=== PATIENT | male | born 1945 | race Caucasian/White ===

== ENCOUNTER 2018-06-18 12:54 | Emergency (ER) | payer MEDICARE, OTHER, SELFPAY ==
[2018-06-18 13:00] VITALS: BP 152/88; PULSE 56; RESP 20; TEMP 36.2; O2SAT 99; BMI 27.2
--- NOTE | 2018-06-18 13:06 | DI.RAD.S_ITS ---
PROCEDURE: XR FINGER RT MIN 2V INDICATIONS: cut pointer finger with a table saw TECHNIQUE: AP hand, 2 views of the second finger(s) acquired. COMPARISON: None. FINDINGS: Bones: Acute oblique fracture involving tip of second distal phalanx is seen. No suspicious bony lesions. Soft tissues: No suspicious soft tissue calcifications. Soft tissue swelling around second distal phalangeal tuft is noted. No radiopaque foreign body. IMPRESSION: Acute second distal phalangeal tuft fracture with surrounding soft tissue swelling. No radiopaque foreign body. Dictated by: Tony Schilling M.D. on 06/18/2018 at 13:24 Approved by: Tony Schilling M.D. on 06/18/2018 at 13:26
[2018-06-18] MEDS: TET,DIPH,PERTUSS(ACELL),VAC/PF 0.5 ML SYRINGE IM (13:39)
--- NOTE | 2018-06-18 14:52 | ED_ITS ---
HPI - Wound/Laceration General Chief Complaint: Wound/Laceration Stated Complaint: Cut on finger Time Seen by Provider: 06/18/18 13:36 Source: patient Mode of arrival: ambulatory Limitations: no limitations History of Present Illness HPI narrative: Patient is a 72-year-old male with laceration to right index finger. He is finishing up a [place] gift for his using a table saw when the wood kicked back. His he has a laceration through the nail bed and the IP. He has no numbness he does have some mild tingling he is able to flex and extend completely at all joints. He states he does need a tetanus shot. Onset (ago): minute(s) Extremity Location: Right: hand (Right index finger) Place: home Patient tetanus UTD: No Context: accidental Related Data Previous Rx's Medication Instructions Recorded cephalexin [Keflex] 500 mg PO TID #21 cap 06/18/18 Allergies Allergy/AdvReac Type Severity Reaction Status Date / Time No Known Drug Allergies Allergy Verified 06/18/18 13:17 Review of Systems Review of Systems GENERAL: Denies chills,fever HEENT: Denies throat pain RESPIRATORY: Denies dyspnea, cough, wheezing CARDIOVASCULAR: Denies chest pain, palpitations GASTROINTESTINAL: Denies nausea, vomiting MUSCULOSKELETAL: Denies extremity pain, injury SKIN: No rash, no laceration, no pruritus NEUROLOGIC: Denies weakness, dizziness, headache, numbness 8 point review of systems is negative except for those stated above and HPI PFSH Medical History Healthy adult (Acute) Social History Smoking Status: Never smoker Exam Initial Vital Signs Initial Vital Signs: Vital Signs Temperature 97.1 F L 06/18/18 13:00 Pulse Rate 56 L 06/18/18 13:00 Respiratory Rate 20 06/18/18 13:00 Blood Pressure 152/88 H 06/18/18 13:00 Pulse Oximetry 99 06/18/18 13:00 GENERAL: Well-appearing, well-nourished and in no acute distress. CARDIOVASCULAR: peripheral pulses in tact, cap refill <2 sec RESPIRATORY: No respiratory distress, speaks in full sentences without difficulty EXTREMITIES: Normal range of motion, no clubbing or edema. Neurovascularly intact NEUROLOGICAL: Cranial nerves II through XII grossly intact. Normal gait and speech. SKIN: Warm, dry, no petechiae, no rashes or lesions. Skin Hand Right Back: 2 1. 3 cm Through nail bed no exposed bone. Able to flex and extend at the IP and PIP. Neurovascularly intact. Cap refill less than 2 sec. Procedures Laceration Repair Laceration 1: Site: hand (Right index finger) Side (If applicable): right Size (cm): 3 Description: linear Depth: involves muscle layer Local Anesthetic: lidocaine 1% and with epi Amount of anesthesia used (mL): 3.5 Pre-repair: wound explored, irrigated extensively and deep structures intact Skin layer closed with: nylon Size (cm): 4-0 Number of sutures: 2 Technique: simple, interrupted Subcutaneous layer closed with: vicryl (Nail bed) Size: 5-0 Number of sutures: 2 Technique: simple, interrupted Nerve Block Nerve Block 1: Time out performed: Yes Local Anesthetic: lidocaine 1% and with bicarb Amount of anesthesia used (mL): 3.5 Side: right (Index finger) Nerve Blocks: digital Procedure Successful: Yes Patient Tolerated Procedure: Well Complications: none Course Orders Ordered: ED Orders 06/18/18 13:06 XR finger RT min 2V Stat Discontinued Medications Cefazolin Sodium (Keflex) 1 bottle [facility] [place] [facility] Stop: 06/18/18 15:01 Last Admin: 06/18/18 15:05 Dose: 500 mg Diphtheria/Tetanus/Acell Pertussis (Adacel) 0.5 ml IM .ONCE ONE Stop: 06/18/18 13:10 Last Admin: 06/18/18 13:39 Dose: 0.5 ml Vital Signs - 8 hr 06/18/18 13:00 06/18/18 15:13 Temperature 97.1 F L Pulse Rate 56 L 59 L Respiratory Rate 20 17 Blood Pressure 152/88 H Blood Pressure [Left Arm] 174/82 H Pulse Oximetry 99 99 MDM - Wound/Laceration MDM Narrative Medical decision making narrative: There is a gap from the table saw however does have fairly good skin approximation. No tendon or nerve damage noted. Nail bed was repaired. I have called and spoken with Dr. Navas, who agrees with outpatient follow- up. Patient is given antibiotics. He is offered pain medications but he actually has some oxycodone left over from a previous surgery which he would prefer to take at home. Discharge Plan Departure Patient Disposition: Home Clinical Impression: Laceration of right index finger, Closed fracture of phalanx of right index finger Discharge Date/Time: 06/18/18 15:23 Interventions: ED Discharge Assessment Last Done: 06/18/18 15:23 Instructions: DI for Laceration Repair -- Complex Activity Restrictions/Additional Instructions: *You have been diagnosed with a complicated right index finger laceration involving nail bed and right finger fracture *What to do: Keep splint on finger, keep dressing on the finger may change in 24 hr Black sutures will need to be removed in 5-7 days likely with Orthopedics, sutures in nail beds should dissolve *Continue to take medications as directed Keflex 500 mg 3 times a day -Tylenol 650 mg every 4 hr if needed for mild pain do not exceed more than 4 g in 1 day *Follow up with your primary care provider in 2-3 days, call [facility] tomorrow to schedule follow-up appoint *Return to ER if you should have redness, pus, swelling, increased pain [or] any new, worsening or concerning symptoms Prescriptions: New cephalexin [Keflex] 500 mg capsule 500 mg PO TID Qty: 21 RF: 0 Referrals: [facility] [Provider Group]
[2018-06-18] MEDS: cephALEXin 250 MG PREPACK 1 BOTTLE MISC (15:05)
[2018-06-18 15:13] VITALS: BP 174/82; PULSE 59; RESP 17; O2SAT 99
== END 2018-06-18 15:23 | disposition home or self-care (01) ==
PROVIDERS: Emergency Provider Emergency Medicine
DX: S62.600B Fracture of unspecified phalanx of right index finger, initial encounter for open fracture (principal); W31.2XXA Contact with powered woodworking and forming machines, initial encounter
CPT/HCPCS: 12002; 29130; 73140; 90471; 99283; 90715

== ENCOUNTER → 2020-02-14 13:09 | Outpatient (CLI) | payer MEDICARE, OTHER, SELFPAY ==
[2020-02-15 19:23] LABS: COVID19 Sendout Not Detected (Not Detect)
== END ==
PROVIDERS: Visit Provider Nurse Practitioner
DX: Z11.59 Encounter for screening for other viral diseases (principal)
CPT/HCPCS: 87635

== ENCOUNTER 2020-02-17 11:38 | Day surgery (SDC) | payer MEDICARE, OTHER, SELFPAY ==
[2020-02-17 12:15] VITALS: BP 185/91; PULSE 52; RESP 16; TEMP 36.2; O2SAT 99; BMI 27.2
[2020-02-17] MEDS: SODIUM CHLORIDE 0.9% 1,000 ML 200 ML IV (12:31)
--- NOTE | 2020-02-17 13:13 | PM.HP.1 ---
History of Present Illness History of Present Illness Date Patient Seen: 02/17/20 Time Patient Seen: 13:13 Chief complaint: SD Narrative: This is a 74-year-old man with history of polyps found on prior colonoscopy. He denies any new symptoms since his last colonoscopy which was over 5 years ago. He denies any melena, hematochezia, unexplained abdominal pain, unexplained weight loss. ROS: Thirteen system review is otherwise negative other than as mentioned below and in HPI. PE: GENERAL: Well groomed and cooperative. Appears stated age. Answers questions promptly and appropriately. Vital signs noted. HENT: Normocephalic, atraumatic. Hearing intact. EYES: Conjunctiva pink, sclera white, no periorbital swelling. CARDIOVASCULAR: Regular rate. No pedal edema. RESPIRATORY: Non-tachypneic, breathing comfortably on room air. GASTROINTESTINAL: Abdomen soft and non-distended GENITALURINARY: No flank tenderness. MUSCULOSKELETAL: Equal tone and mass bilaterally. SKIN: Warm, dry, soft, appropriate color for ethnicity. No other lesions, rashes, or wounds. NEURO: Alert and Oriented X 3. No gross sensory deficits, or cognitive issues. PSYCH: Appropriate affect and mood. Patient History Medical History Healthy adult (Acute) Family & Social History Social History: household members spouse Tobacco & Substance use: Smoking Status Never smoker alcohol intake current alcohol intake frequency holiday/special occasion Substance Use Type does not use Meds Home Medications and Allergies Home Medications Medication Instructions Recorded Confirmed Type sodium,potassium,mag sulfates 17.5 177 ml PO DAILY #354 ml 02/11/20 Rx gram-3.13 gram-1.6 gram oral soln Allergies Allergy/AdvReac Type Severity Reaction Status Date / Time No Known Drug Allergies Allergy Verified 02/17/20 12:03 Exam Vital Signs (past 8 hours): - 02/17/20 12:15 Temperature 97.2 F L Pulse Rate 52 L Respiratory Rate 16 Blood Pressure 185/91 H Pulse Oximetry 99 Oxygen Delivery Method Room Air Assessment & Plan Assessment and plan (1) Personal history of colonic polyps: Status: Acute (2) Hypertension: Status: Acute Assessment & Plan narrative: Risks and benefits of screening colonoscopy and possible polypectomy were discussed with the patient including risk of bleeding, perforation, need for additional procedures, risks of anesthesia. The patient desires to proceed with the colonoscopy procedure. COVID-19 COVID-19 status: Negative Result date/Date tested (Pos, Neg/Pending): 02/14/20 Time Spent With Patient Time with patient: 15-24 minutes Quality VTE Deep Vein Thrombosis/Pulmonary Embolism Present on Admission: No
--- NOTE | 2020-02-17 13:17 | PM.OP.ENDO ---
Operative Date/Time/Diagnoses Date of procedure: 02/17/20 Time of procedure: 13:17 Pre-op diagnosis: Personal history colon polyps Post-op diagnosis: other (Diverticulosis, external hemorrhoids, bradycardia) Procedure & Clinicians Study performed: Colonoscopy Conscious sedation performed by the endoscopist Same procedure as scheduled: Yes Indications: Personal history of colon polyps Surgeon: Deborah Nuno Procedure Notes SCOAP/Timeout: Performed Procedure in detail: The patient was brought to the room and placed in left lateral decubitus position with all bony prominences padded. A time-out was performed and then the patient was given procedural sedation starting with [4] mg of Versed and [100] mcg of fentanyl. Vitals were monitored throughout the procedure. Once adequately sedated, the procedure was begun. A rectal exam was performed revealing large external hemorrhoid. The colonoscope was then introduced to the rectum and advanced to the cecum in the usual fashion. The patient became bradycardic down to the 30s, and had a couple of dips into the 20s at a few points during the procedure. We had him Valsalva and his heart rate came back up to the 40s each time. His blood pressure remained in the 140s systolic, and he was able to talk to us, denied chest pain, and was appropriately alert when awake and during the procedure. []The cecum was identified by the appendiceal orifice, the mucosal tri-fold, and the ileocecal valve. The scope was then retracted while rotating side to side and examining each mucosal fold. Moderate diverticulosis seen in the sigmoid colon. No polyps or masses were seen. The colon was quite tortuous with many twists and fold. [] At the conclusion of the procedure retroflexion was performed and [small grade 1-2 internal hemorrhoids without stigmata of bleeding were seen]. The scope was then withdrawn from the rectum the procedure was concluded. The patient tolerated the procedure well and was transferred to the PACU in stable condition. Scope withdrawal time: 8 Sedation minutes: 17 Findings: diverticulosis and other findings (Large external her) Specimen(s): none sent Complications: other (Bradycardia) Impression: Diverticulosis, large external hemorrhoid Post-procedure Recommendations: Colonscopy in 5 years (Due to personal history of colon polyps) and Other recommendation (Use Metamucil or fiber supplement, follow-up with primary care doctor to evaluate bradycardia) Follow up: as needed Disposition: PACU
[2020-02-17] MEDS: fentaNYL 250 MCG/5 ML INJ IV (13:21)
[2020-02-17] MEDS: MIDAZOLAM 5 MG/5 ML VIAL IV (13:21)
[2020-02-17 13:45] VITALS: BP 163/77; PULSE 53; RESP 13; TEMP 36.2; O2SAT 96
[2020-02-17 13:49] VITALS: BP 160/73; PULSE 53; RESP 12; TEMP 36.4; O2SAT 99
[2020-02-17 13:54] VITALS: BP 147/95; PULSE 51; RESP 13; O2SAT 98
[2020-02-17 14:02] VITALS: BP 155/83; PULSE 48; RESP 17; TEMP 37; O2SAT 97
--- NOTE | 2020-02-17 14:08 | SUR.PHASEII ---
Report and handoff to Amna
[2020-02-17 14:19] VITALS: BP 140/84; PULSE 45; RESP 16; TEMP 36.7; O2SAT 96
== END 2020-02-17 14:23 | disposition home or self-care (01) ==
PROVIDERS: PCP Internal Medicine; Referring Provider Internal Medicine; Visit Provider Surgery
PROC: 0DJD8ZZ Inspection of Lower Intestinal Tract, Via Natural or Artificial Opening Endoscopic (ICD-10-PCS; CPT 45378; principal; 2020-02-17 13:00)
DX: Z12.11 Encounter for screening for malignant neoplasm of colon (principal); Z86.010 Personal history of colon polyps; R00.1 Bradycardia, unspecified; I10 Essential (primary) hypertension; K57.30 Diverticulosis of large intestine without perforation or abscess without bleeding; K64.0 First degree hemorrhoids
CPT/HCPCS: G0105; 99152; J2250; J3010

== ENCOUNTER → 2020-12-02 09:13 | Outpatient (CLI) | payer MEDICARE, OTHER, SELFPAY ==
--- NOTE | 2020-12-02 09:16 | DI.RAD.S_ITS ---
PROCEDURE: XR SHOULDER LT MIN 2V INDICATIONS: l shoulder pain TECHNIQUE: 3 views of the shoulder were acquired. COMPARISON: [facility], [place], PET NECK TO MID THIGH STD, 07/07/2015, 13:45. FINDINGS: Bones: No fractures or dislocations. No suspicious bony lesions. Visualized ribs appear intact. Moderate degenerative change appreciated. Degenerative hypertrophy of the AC joint with inferior spurring. Soft tissues: No suspicious soft tissue calcifications. IMPRESSION: No acute osseous abnormality. 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 If clinically indicated consider MRI for further evaluation. Dictated by: Epifanio Montano M.D. on 12/02/2020 at 9:51 Approved by: Epifanio Montano M.D. on 12/02/2020 at 9:54
== END ==
PROVIDERS: PCP Internal Medicine; Referring Provider Physician Assistant; Visit Provider Physician Assistant
DX: M25.512 Pain in left shoulder (principal)
CPT/HCPCS: 73030

== ENCOUNTER 2020-12-06 12:17 | Emergency (ER) | payer MEDICARE, OTHER, SELFPAY ==
[2020-12-06 12:34] VITALS: BP 164/82; PULSE 62; RESP 19; O2SAT 98; BMI 27.2
[2020-12-06 16:21] VITALS: BP 169/82; PULSE 60; RESP 20; O2SAT 100
--- NOTE | 2020-12-06 16:26 | ED.SKABFB ---
HPI - Skin/Abscess/Foreign Bdy General Chief complaint: Skin/Abscess/Foreign Body Stated complaint: swelling/bruising left side no injury Time Seen by Provider: 12/06/20 16:25 Source: patient Mode of arrival: Family Vehicle Limitations: no limitations History of Present Illness HPI narrative: This is a 75-year-old comes emergency department with complaint of increasing ecchymosis down his arm as well as his left chest and flank. Patient states on the or 28 of November he was driving his car he was extending and adduct his arm when he felt a pop in his shoulder and had immediate pain. Since then he has had weakness and had difficulty flexing his left forearm. Patient noticed bruising down his arm and then the 2 or 3 days later noticed bruising and some swelling behind the scapula. Another day after that he noted bruising on his left flank which felt failure full. The fullness has resolved but he still has ecchymosis. Patient does not take any daily medications. He does not take any anticoagulants. He denies any other falls, trauma or injuries. He states he is quite uncomfortable in the evening but has tried Tylenol oral at home. He was seen in the walk-in clinic who told him he thought he had a ruptured biceps tendon and referred him to his primary care. He has not seen orthopedic surgery. He denies any allergies to medications. He denies any numbness, EKG Ali has some tingling in his fingers but not regularly. Related Data Previous Rx's Medication Instructions Recorded sodium,potassium,mag sulfates 17.5 177 ml PO DAILY #354 ml 02/11/20 gram-3.13 gram-1.6 gram oral soln Allergies Allergy/AdvReac Type Severity Reaction Status Date / Time No Known Drug Allergies Allergy Verified 12/06/20 12:34 Review of Systems Review of Systems ROS Unobtainable: All systems reviewed & are unremarkable except as noted in HPI and below Patient History Medical History (Updated 12/06/20 @ 19:10 by Ekta Bradley DO) Healthy adult Social History household members: spouse Smoking Status: Never smoker alcohol intake: current Smoking Status: Never smoker alcohol intake frequency: holidays/special occasions only Substance Use Type: does not use Exam Narrative Exam Narrative: GEN: Patient appears in mild distress. HEAD: No evidence of trauma, no raccoon/Carreon sign. NECK: Nontender, painless range of motion, trachea midline Negative Nexus criteria, there is no mid line tenderness, distracting injury, altered mental status, neuro deficit, recent EtOH. EYES: PERRLA, EOMI ENT: External inspection normal, trachea is midline,Nares are clear, no septal hematoma, airway is normal and with normal occlusion. RESP: Chest is nontender except for posterior chest over the left scapula which does have some fullness. He has symmetric movement, no ecchymosis, breath sounds are normal no crackles, wheezes or rales. CVS: Heart sounds are normal, no murmur noted, No JVD. ABG/GI: Nontender, soft, normal bowel sounds, no distention, no organomegaly. NEURO: Oriented AOx3, neuro is grossly intact, sensation and motor is normal all 4 extremities moving, cranial nerves II through XII are intact, GCS is 15 PSYCH: Normal mood and affect SKIN: Intact, warm and dry, no crepitus. Patient has ecchymosis of the left upper extremity into the axilla region he also has ecchymosis of the posterior back just below the scapula. It is also noted patient has ecchymoses of his left flank with no palpable hematoma. No warmth, erythema skin changes noted. BACK: No CVA tenderness, no vertebral tenderness, no step-off's, no crepitus EXT: Atraumatic, hips are nontender, no pedal edema, normal color and temperature, normal range of motion of extremities with normal tendon exam, 2+ pulses in all four extremities Initial Vital Signs Initial Vital Signs: Vital Signs Pulse Rate 62 12/06/20 12:34 Respiratory Rate 19 12/06/20 12:34 Blood Pressure 164/82 H 12/06/20 12:34 Pulse Oximetry 98 12/06/20 12:34 Scores GCS [place] coma scale eye opening: Spontaneous [place] coma scale verbal response: Orientated [place] coma scale motor response: Obey commands [place] coma scale total score: 15 Course Orders Ordered: ED Orders 12/06/20 16:36 CT chest abd pel w con Stat 12/06/20 16:41 XR shoulder LT min 2V Stat 12/06/20 16:52 Complete Blood Count AUTO DIFF Stat Comprehensive Metabolic Panel Stat Type and Screen Stat Consultations Consultation #1: Dr. Ayala, patient to follow up in office. Vital Signs Vital signs: Vital Signs - 8 hr 12/06/20 16:21 12/06/20 19:07 Pulse Rate 60 59 L Respiratory Rate 20 18 Blood Pressure 169/82 H 141/81 H Pulse Oximetry 100 99 MDM - Skin/Abscess/Foreign Bdy Lab Data Attestation: I reviewed the patient's lab results. Result diagrams: 12/06/20 16:52 12/06/20 16:52 Labs: Lab Results 12/06/20 12/06/20 12/06/20 Range/Units 16:52 16:52 16:52 WBC 5.8 (4.5-11.0) X10^3/uL RBC 4.10 L (4.5-5.9) X10^6/uL Hgb 12.6 L (13.5-17.5) g/dL Hct 36.5 L (41-53) % MCV 88.9 (80-100) fL MCH 30.8 (26-34) PG MCHC 34.7 (30-36) % RDW 14.2 (11.6-14.8) % Plt Count 256 (150-400) X10^3/uL Neut % (Auto) 62.5 (50-75) % Lymph % (Auto) 24.3 L (25-40) % Isabela % (Auto) 9.4 (3-14) % Eos % (Auto) 3.5 (2-4) % Baso % (Auto) 0.3 (0-2) % Neut # (Auto) 3600 (1819-4257) /uL Lymph # (Auto) 1400 (5017-1053) /uL Isabela # (Auto) 500 (0-900) /uL Eos # (Auto) 200 (0-450) /uL Baso # (Auto) 0 (0-100) /uL Sodium 138 (137-145) mmol/L Potassium 4.1 (3.4-5.1) mmol/L Chloride 106 (98-107) mmol/L Carbon Dioxide 25 (22-32) mmol/L BUN 18 (9-20) mg/dL Creatinine 0.99 (0.66-1.25) mg/dL Estimated GFR > 60.0 (>60) mL/min BUN/Creatinine Ratio 18.2 (6-22) Glucose 88 (80-110) mg/dL Calcium 9.4 (8.4-10.2) mg/dL Total Bilirubin 1.0 (0.2-1.3) mg/dL AST 40 (17-59) IU/L ALT 38 (<50) IU/L Alkaline Phosphatase 66 (38-126) U/L Total Protein 6.9 (6.3-8.2) g/dL Albumin 4.0 (3.5-5.0) g/dL Globulin 2.9 (1.7-4.1) g/dL Albumin/Globulin Ratio 1.4 (1.0-2.8) Blood Type A Positive Antibody Screen Negative Imaging Data CT scan - abdomen/pelvis: Radiologist's Impression: [address] [id number] Scan ReportSigned Patient: Samuel Ricardo BMR#: [id number]: 6Acct:[id number]/Sex: 75 / MDate of Service: 12/06/20Loc: EDAccession Number: [id number] Procedure: CT chest abd pel w con Ordering Provider: Ekta Bradley D.O. PROCEDURE: CT CHEST ABD PEL W CON INDICATIONS: Chest and abdomen pain. Abdominal and arm bruising TECHNIQUE: After the administration of intravenous contrast, 5 mm thick sections acquired from the lung apices to the symphysis. 5 mm coronal and sagittal reformats were performed, with additional 7 mm MIP reformats through the lungs. For radiation dose reduction, the following was used: automated exposure control, adjustment of mA and/or kV according to patient size. COMPARISON: None. FINDINGS: Image quality: Excellent. CHEST: Lungs and pleura: No acute airspace opacities. No pleural effusions or pneumothorax. Central and peripheral airways appear patent and normal in caliber. Mediastinum: Heart size is normal. No pericardial effusion. No mediastinal or hilar adenopathy by size criteria. Thoracic aorta and central pulmonary arteries are normal in size. Esophagus is normal in caliber. No hiatal hernia. Chest wall: No axillary or supraclavicular adenopathy by size criteria. Thyroid gland unremarkable. In the left infraspinous muscle, there is a heterogenous ovoid hypodensity measuring 2.7 x 6.6 by 4.3 cm which probably reflects a intramuscular hematoma, given history. The scapula and ribs are intact. Degenerative changes of both shoulders in noted. No rib fracture. ABDOMEN: Solid organs: Liver is normal in size and enhancement. Gallbladder shows incidental cholelithiasis without evidence of acute cholecystitis . Biliary system is non dilated. Pancreas enhances normally. Spleen is normal in size and enhancement. No adrenal nodules. Kidneys demonstrate normal size and enhancement, without hydronephrosis. Peritoneum and bowel: Bowel loops demonstrate normal wall thickness and caliber. No free fluid or air. Diverticulosis without evidence of diverticulitis Nodes and vessels: No retroperitoneal or mesenteric adenopathy by size criteria. Aorta and inferior vena cava are normal in size. Miscellaneous: No ventral hernias. PELVIS: Genitourinary: Bladder wall thickness is normal. Miscellaneous: No inguinal hernias or adenopathy. There is edema in the subcutaneous tissue overlying the left iliac crest, ill-defined. Bones: No suspicious bony lesions. No vertebral body compression fractures. Multilevel degenerative disc disease and arthropathy noted in lower lumbar spine. Partial sacralization of the L5 vertebral body. Vertebral body heights and alignment are preserved. No fracture. IMPRESSION: 1. Probable intramuscular hematoma noted in the left infraspinatus muscle belly measuring 6.6 x 2.7 cm. Correlate with trauma history. Consider follow-up to resolution. 2. Bruising in the subcutaneous tissue overlying the left iliac crest. 3. Degenerative osseous changes without fracture 4. Cholelithiasis without evidence of cholecystitis Dictated by: Everton Scott M.D. on 12/06/2020 at 16:57 Approved by: Everton Scott M.D. on 12/06/2020 at 17:10 Extremity x-ray #1: Radiologist's Impression: [address] [id number] ReportSigned Patient: Samuel Ricardo BMR#: [id number]: 1945cct:[id number]/Sex: 75 / MDate of Service: 12/06/20Loc: EDAccession Number: [id number] Procedure: XR shoulder LT min 2V Ordering Provider: Ekta Bradley D.O. PROCEDURE: XR SHOULDER LT MIN 2V INDICATIONS: left shoulder pain, ? ruptured biceps tendon TECHNIQUE: 3 views of the shoulder were acquired. COMPARISON: [facility], CR, XR SHOULDER LT MIN 2V, 12/02/2020, 9:20. FINDINGS: Bones: No fractures or dislocations. No suspicious bony lesions. Visualized ribs appear intact. There is now seen prominent narrowing of the acromial humeral distance, measuring less than 2 mm. This represents a change compared to the 12/02/2020 examination. Underlying degenerative changes are seen. Soft tissues: No suspicious soft tissue calcifications. The visualized lung demonstrates an unremarkable appearance. IMPRESSION: There is narrowing of the acromial humeral distance. An underlying full-thickness rotator cuff tear is presumed. If it would be helpful for clinical management decision making, please consider a dedicated, scheduled shoulder MRI for further evaluation (assuming that there is no contraindication). Dictated by: Jeremi Nayak M.D. on 12/06/2020 at 16:57 Approved by: Jeremi Nayak M.D. on 12/06/2020 at 16:58 [facility] Narrative Medical decision making narrative: This is a 75-year-old male who comes in with complaint of weakness of his left upper extremity with movement after feeling pop. Patient has pretty significant hematoma and ecchymosis into his left upper extremity as well as left torso and left hip. CT abdomen pelvis shows a 6.6 x 2.7cm hematoma in the left infraspinatous. Patient has bruising in the subcu over the left iliac crest which is too atypical but patient has been sleeping upright and is likely secondary to gravity. Cholelithiasis without evidence of cholecystitis. An x-ray imaging does show changes with narrowing of the acromial humerus distance and with a full-thickness rotator cuff tear presumed. Patient hemoglobin today is 12 but I do not have any priors to compare to see if this is a change. Patient has not been hypotensive or tachycardic here in the department. Plan for close follow-up with Orthopedic surgery and repeat hemoglobin in the next 24-48 hours with strict return precautions. Patient politely declines a sling and we did discuss he does need to decrease activity level. Discharge Plan Departure Patient Disposition: Home Clinical Impression: Traumatic hematoma of left thoracic region, Internal derangement of left shoulder, Traumatic ecchymosis of left hip, Anemia Activity Restrictions/Additional Instructions: Follow up with orthopedic surgery for treatment and evaluation. I do agree that you likely have a biceps tendon rupture/tear or possibly a rotator cuff repair. Call tomorrow for an appointment this week. Decrease your activity with that arm. No lifting greater than 10 pounds or strenous activity until seen by orthopedic surgery. You may take tylenol up to 1000mg every 8 hours daily. Your imaging today does show a hematoma that is 6.6x2.7cm in the left infraspinatous muscle, it is likely the blood is running down towards your hip due to gravity. No other injurys were found on CT of your chest/abd/pelvis today. Your hemoglobin is 12 this may be new or chronic. Asked to call your physician have recheck in the next 24-48 hours to make sure your hemoglobin is not continuing to drop. Incidentally it is noted that you do have gallstones on your imaging and some degenerative and arthritic changes in your lower lumbar spine. Return for rapidly worsening swelling of your back, increasing size of hematoma or bruising. Lightheadedness, new chest pain or shortness of breath, new or worsening abdominal pain, new numbness, tingling or weakness, or other new or concerning symptoms. Prescriptions: No Action sodium,potassium,mag sulfates 17.5-3.13-1.6 gram recon soln 177 ml PO DAILY Qty: 354 RF: 0 Referrals: Magaly Gamino MD [Primary Care Provider] - Tommie Ayala MD [Physician] -
--- NOTE | 2020-12-06 16:36 | DI.CT.S_ITS ---
PROCEDURE: CT CHEST ABD PEL W CON INDICATIONS: Chest and abdomen pain. Abdominal and arm bruising TECHNIQUE: After the administration of intravenous contrast, 5 mm thick sections acquired from the lung apices to the symphysis. 5 mm coronal and sagittal reformats were performed, with additional 7 mm MIP reformats through the lungs. For radiation dose reduction, the following was used: automated exposure control, adjustment of mA and/or kV according to patient size. COMPARISON: None. FINDINGS: Image quality: Excellent. CHEST: Lungs and pleura: No acute airspace opacities. No pleural effusions or pneumothorax. Central and peripheral airways appear patent and normal in caliber. Mediastinum: Heart size is normal. No pericardial effusion. No mediastinal or hilar adenopathy by size criteria. Thoracic aorta and central pulmonary arteries are normal in size. Esophagus is normal in caliber. No hiatal hernia. Chest wall: No axillary or supraclavicular adenopathy by size criteria. Thyroid gland unremarkable. In the left infraspinous muscle, there is a heterogenous ovoid hypodensity measuring 2.7 x 6.6 by 4.3 cm which probably reflects a intramuscular hematoma, given history. The scapula and ribs are intact. Degenerative changes of both shoulders in noted. No rib fracture. ABDOMEN: Solid organs: Liver is normal in size and enhancement. Gallbladder shows incidental cholelithiasis without evidence of acute cholecystitis . Biliary system is non dilated. Pancreas enhances normally. Spleen is normal in size and enhancement. No adrenal nodules. Kidneys demonstrate normal size and enhancement, without hydronephrosis. Peritoneum and bowel: Bowel loops demonstrate normal wall thickness and caliber. No free fluid or air. Diverticulosis without evidence of diverticulitis Nodes and vessels: No retroperitoneal or mesenteric adenopathy by size criteria. Aorta and inferior vena cava are normal in size. Miscellaneous: No ventral hernias. PELVIS: Genitourinary: Bladder wall thickness is normal. Miscellaneous: No inguinal hernias or adenopathy. There is edema in the subcutaneous tissue overlying the left iliac crest, ill-defined. Bones: No suspicious bony lesions. No vertebral body compression fractures. Multilevel degenerative disc disease and arthropathy noted in lower lumbar spine. Partial sacralization of the L5 vertebral body. Vertebral body heights and alignment are preserved. No fracture. IMPRESSION: 1. Probable intramuscular hematoma noted in the left infraspinatus muscle belly measuring 6.6 x 2.7 cm. Correlate with trauma history. Consider follow-up to resolution. 2. Bruising in the subcutaneous tissue overlying the left iliac crest. 3. Degenerative osseous changes without fracture 4. Cholelithiasis without evidence of cholecystitis Dictated by: Everton Scott M.D. on 12/06/2020 at 16:57 Approved by: Everton Scott M.D. on 12/06/2020 at 17:10
--- NOTE | 2020-12-06 16:41 | DI.RAD.S_ITS ---
PROCEDURE: XR SHOULDER LT MIN 2V INDICATIONS: left shoulder pain, ? ruptured biceps tendon TECHNIQUE: 3 views of the shoulder were acquired. COMPARISON: [facility], CR, XR SHOULDER LT MIN 2V, 12/02/2020, 9:20. FINDINGS: Bones: No fractures or dislocations. No suspicious bony lesions. Visualized ribs appear intact. There is now seen prominent narrowing of the acromial humeral distance, measuring less than 2 mm. This represents a change compared to the 12/02/2020 examination. Underlying degenerative changes are seen. Soft tissues: No suspicious soft tissue calcifications. The visualized lung demonstrates an unremarkable appearance. IMPRESSION: There is narrowing of the acromial humeral distance. An underlying full-thickness rotator cuff tear is presumed. If it would be helpful for clinical management decision making, please consider a dedicated, scheduled shoulder MRI for further evaluation (assuming that there is no contraindication). Dictated by: Jeremi Nayak M.D. on 12/06/2020 at 16:57 Approved by: Jeremi Nayak M.D. on 12/06/2020 at 16:58
[2020-12-06 17:15] LABS: Add Manual Diff / Slide Review NO; Basophils Absolute Auto 0 /uL (0-100); Basophils Percent Auto 0.3 % (0-2); Eosinophils Absolute Auto 200 /uL (0-450); Eosinophils Percent Auto 3.5 % (2-4); Hematocrit 36.5 % (41-53); Hemoglobin 12.6 g/dL (13.5-17.5); Lymphocytes Absolute Auto 1400 /uL (1100-4500); Lymphocytes Percent Auto 24.3 % (25-40); Mean Corpuscular HGB Conc 34.7 % (30-36); Mean Corpuscular Hemoglobin 30.8 PG (26-34); Mean Corpuscular Volume 88.9 fL (80-100); Monocytes Absolute Auto 500 /uL (0-900); Monocytes Percent Auto 9.4 % (3-14); Neutrophils Absolute Auto 3600 /uL (1500-7000); Neutrophils Percent Auto 62.5 % (50-75); Platelet Count 256 X10^3/uL (150-400); Red Cell Distribution Width 14.2 % (11.6-14.8); White Blood Cell Count 5.8 X10^3/uL (4.5-11.0)
[2020-12-06 17:16] LABS: Alanine Aminotransferase 38 IU/L (<50); Albumin Globulin Ratio 1.4 (1.0-2.8); Alkaline Phosphatase 66 U/L (38-126); Aspartate Aminotransferase 40 IU/L (17-59); BUN Creatinine Ratio 18.2 (6-22); Blood Urea Nitrogen 18 mg/dL (9-20); Calcium 9.4 mg/dL (8.4-10.2); Carbon Dioxide 25 mmol/L (22-32); Chloride 106 mmol/L (98-107); Estimated Glomerular Filt Rate > 60.0 mL/min (>60); Globulin 2.9 g/dL (1.7-4.1); Glucose 88 mg/dL (80-110); HEMOLYSIS < 15 (0-50); Potassium 4.1 mmol/L (3.4-5.1); Sodium 138 mmol/L (137-145); Total Protein 6.9 g/dL (6.3-8.2)
[2020-12-06 19:07] VITALS: BP 141/81; PULSE 59; RESP 18; O2SAT 99
--- NOTE | 2020-12-06 19:08 | PC.NURSE ---
c/o bruising down left arm, left axialla and down left flank. Denies trauma except recent left arm injury from lifting and presumed bicpet tear. + CSM distally.
== END 2020-12-06 19:25 | disposition home or self-care (01) ==
PROVIDERS: Emergency Provider Emergency Medicine; PCP Internal Medicine
DX: S20.222A Contusion of left back wall of thorax, initial encounter (principal); S70.02XA Contusion of left hip, initial encounter; D64.9 Anemia, unspecified; M24.812 Other specific joint derangements of left shoulder, not elsewhere classified; R07.9 Chest pain, unspecified; R10.9 Unspecified abdominal pain
CPT/HCPCS: 36415; 71260; 73030; 74177; 80053; 85025; 86850; 86900; 86901; 99284; Q9967

== ENCOUNTER → 2020-12-21 16:47 | Outpatient (CLI) | payer MEDICARE, OTHER, SELFPAY ==
--- NOTE | 2020-12-21 | DI.MRI.S_ITS ---
PROCEDURE: MR SHOULDER LT WO CON INDICATIONS: Unspecified rotator cuff tear TECHNIQUE: Noncontrast oblique coronal T2 fast spin echo with fat saturation, oblique sagittal T1 spin echo and T2 fast spin echo with fat saturation, axial T1 spin echo and T2 fast spin echo with fat saturation through the shoulder. COMPARISON: None. FINDINGS: Image quality: Excellent. Rotator cuff: Full-thickness rupture of distal supraspinatus and infraspinatus at their insertion on the humeral head is seen with up to 5.2 cm medial retraction of torn tendon fibers to the level of glenoid. Tendinosis and low-grade partial-thickness tear involving superior fibers of distal subscapularis is seen. Sagittal images demonstrate moderate supraspinatus muscle atrophy. Large lobulated intramuscular hematoma within visualized portion of infraspinatus muscle is seen. Bones and bursae: No bone marrow contusions or fractures. Moderate acromioclavicular joint and glenohumeral joint osteoarthritic changes are seen. Superior migration of humeral head in relation to glenoid is also noted. There is moderate amount of joint effusion and subacromial subdeltoid bursal fluid. No definite intra-articular loose body is seen. Moderate subcoracoid bursal fluid is also seen. Capsule and soft tissues: Labrum is grossly intact. Glenohumeral ligaments are intact. The long head of the biceps tendinosis is seen. The rotator interval appears normal, without fibrosis. The coracohumeral ligament is normal in thickness. IMPRESSION: 1. Full-thickness rupture of distal supraspinatus and infraspinatus at their insertion on humeral head with up to 5.2 cm medial retraction of torn tendon fibers to the level of glenoid. Moderate supraspinatus muscle atrophy. Large intramuscular hematoma within visualized portion of infraspinatus muscle. 2. Distal subscapularis tendinosis with partial-thickness tear involving superior fibers of distal subscapularis. 3. Moderate acromioclavicular joint and glenohumeral joint osteoarthritis. Moderate amount of joint effusion and bursal fluid as above. No gross intra-articular loose body. 4. No gross focal labral tear. Proximal intra-articular portion of long head of biceps tendinosis. Dictated by: Tony Schilling M.D. on 12/22/2020 at 8:57 Approved by: Tony Schilling M.D. on 12/22/2020 at 9:21
== END ==
PROVIDERS: PCP Internal Medicine; Referring Provider Orthopaedic Surgery; Visit Provider Orthopaedic Surgery
DX: M75.122 Complete rotator cuff tear or rupture of left shoulder, not specified as traumatic (principal); M19.012 Primary osteoarthritis, left shoulder
CPT/HCPCS: 73221

== ENCOUNTER → 2021-07-06 11:12 | Outpatient (CLI) | payer MEDICARE, OTHER, SELFPAY ==
[2021-07-06 12:19] LABS: Add Manual Diff / Slide Review NO; Basophils Absolute Auto 0 /uL (0-100); Basophils Percent Auto 0.3 % (0-2); Eosinophils Absolute Auto 100 /uL (0-450); Eosinophils Percent Auto 2.3 % (2-4); Hematocrit 42.8 % (41-53); Hemoglobin 14.6 g/dL (13.5-17.5); Lymphocytes Absolute Auto 1300 /uL (1100-4500); Lymphocytes Percent Auto 25.4 % (25-40); Mean Corpuscular HGB Conc 34.1 % (30-36); Mean Corpuscular Hemoglobin 29.6 PG (26-34); Monocytes Absolute Auto 400 /uL (0-900); Monocytes Percent Auto 8.1 % (3-14); Neutrophils Absolute Auto 3400 /uL (1500-7000); Neutrophils Percent Auto 63.9 % (50-75); Platelet Count 194 X10^3/uL (150-400); Red Blood Cell Count 4.92 X10^6/uL (4.5-5.9); Red Cell Distribution Width 15.6 % (11.6-14.8); White Blood Cell Count 5.3 X10^3/uL (4.5-11.0)
[2021-07-06 13:07] LABS: Alanine Aminotransferase 22 IU/L (<50); Albumin 4.4 g/dL (3.5-5.0); Albumin Globulin Ratio 1.6 (1.0-2.8); Alkaline Phosphatase 63 U/L (38-126); Aspartate Aminotransferase 27 IU/L (17-59); BUN Creatinine Ratio 15.7 (6-22); Bilirubin Total 0.6 mg/dL (0.2-1.3); Blood Urea Nitrogen 17 mg/dL (9-20); Calcium 9.6 mg/dL (8.4-10.2); Carbon Dioxide 29 mmol/L (22-32); Chloride 106 mmol/L (98-107); Estimated Glomerular Filt Rate > 60.0 mL/min (>60); Globulin 2.7 g/dL (1.7-4.1); Glucose 83 mg/dL (80-110); HEMOLYSIS < 15 (0-50); Potassium 4.8 mmol/L (3.4-5.1); Sodium 141 mmol/L (137-145); Total Protein 7.1 g/dL (6.3-8.2)
== END ==
PROVIDERS: PCP Internal Medicine; Referring Provider Surgery; Visit Provider Surgery
DX: K80.20 Calculus of gallbladder without cholecystitis without obstruction (principal)
CPT/HCPCS: 36415; 80053; 85025

== ENCOUNTER 2021-09-18 12:09 | Observation (INO) | payer MEDICARE, OTHER, SELFPAY ==
[2021-09-18] VITALS (24 sets, daily range): BP systolic 162–206; BP diastolic 77–96; PULSE 44–83; RESP 10–22; TEMP 36.2–36.9; O2SAT 96–100; BMI 26.5
--- NOTE | 2021-09-18 12:23 | DI.RAD.S_ITS ---
PROCEDURE: XR CHEST 1V INDICATIONS: bradycardia TECHNIQUE: One view of the chest was acquired. COMPARISON: [facility], CT, CT CHEST ABD PEL W CON, 12/06/2020, 17:26. [facility], CT, CT HEAD/BRAIN WO CON, 09/18/2021, 12:31. FINDINGS: Surgical changes and devices: Left shoulder arthroplasty hardware is seen. Lungs and pleura: Lungs are clear. No pleural effusions or pneumothorax. Mediastinum: Mediastinal contours appear normal. Heart size is normal. Bones and chest wall: No suspicious bony lesions. Age-appropriate bony degenerative changes are seen. Mild dextroconvex scoliotic curvature is seen. Overlying soft tissues appear unremarkable. IMPRESSION: No significant portable chest abnormality can be seen. Dictated by: Jeremi Nayak M.D. on 09/18/2021 at 12:04 Approved by: Jeremi Nayak M.D. on 09/18/2021 at 12:05
--- NOTE | 2021-09-18 12:23 | DI.CT.S_ITS ---
PROCEDURE: CT HEAD/BRAIN WO CON INDICATIONS: dizziness, h/o brain CA TECHNIQUE: Noncontrast 4.5 mm thick angled axial sections acquired from the foramen magnum to the vertex, with coronal and sagittal reformats. For radiation dose reduction, the following was used: automated exposure control, adjustment of mA and/or kV according to patient size. COMPARISON: [facility], CR, XR CHEST 1V, 09/18/2021, 12:15. (the a A prior brain MRI from 2010 is not available from the archive at the time of this dictation.) FINDINGS: Image quality: Excellent. CSF spaces: Basal cisterns are patent. No extra-axial fluid collections. The ventricles are symmetric in size and shape. Brain: In this patient with this given history, scrutiny is given to brain masses or mass effect. No masses are seen. No focal brain edema can be seen. No intracranial bleeds. There is cerebral volume loss for age, with resultant ventricular and sulcal prominence. There are periventricular and deep white matter chronic small vessel ischemic changes. There is intracranial internal carotid artery atherosclerosis. Skull and face: Calvarium and visualized facial bones appear intact, without suspicious lesions. Sinuses: Visualized sinuses and mastoids are clear. IMPRESSION: To the limits of noncontrast head CT, no masses or mass effect can be seen. No focal brain edema. If it would be helpful for clinical management decision making, please consider a dedicated, scheduled brain MRI for further evaluation (assuming that there is no contraindication). Dictated by: Jeremi Nayak M.D. on 09/18/2021 at 11:46 Approved by: Jeremi Nayak M.D. on 09/18/2021 at 11:52
--- NOTE | 2021-09-18 12:26 | ED_ITS ---
HPI - Dizziness <Ricardo Peacock PA-C - Last Filed: 09/18/21 17:18> General Chief Complaint: Dizziness Stated Complaint: Dizzy Time Seen by Provider: 09/18/21 12:23 History of Present Illness HPI Narrative: Patient is a 76-year-old male who presents to the ED via EMS for dizziness. Patient reports that approximately 2 hours prior to arrival he was standing having conversation with family outside when he experienced a sudden onset of dizziness nausea and vomiting. He reports that he vomited multiple times. was concerned about his blood sugar possibly being low of which she gave him some candy and use. EMS was called and he was transported established an IV. Vital signs reported showed bradycardia down in the 30s. reports that previously he had a colonoscopy and during the procedure had a sudden bradycardic episode down in the 20s she reports that cardiology did evaluation his vital signs had normalized and nothing further was done. He denies any history of previous MO or stroke. He denies taking any prescription medication and only admits to taking eupd-zme-daznaip vitamins of various kinds. Related Data Allergies Allergy/AdvReac Type Severity Reaction Status Date / Time No Known Drug Allergies Allergy Verified 07/05/21 15:03 Review of Systems <Ricardo Peacock PA-C - Last Filed: 09/18/21 17:18> Review of Systems ROS Unobtainable: All systems reviewed & are unremarkable except as noted in HPI and below Constitutional Constitutional: Denies chills, Denies fatigue, Denies fever(s), Denies frequent falls, Denies lethargy and Denies weakness Eyes Eyes: Denies change in vision, Denies eye discharge, Denies irritation and Denies loss of vision ENT Ears, Nose, Mouth, and Throat: Denies change in voice, Reports dizziness, Denies neck pain, Denies sore throat and Denies throat swelling Cardiovascular Cardiovascular: Denies chest pain, Denies irregular heart rhythm, Reports lightheadedness, Denies palpitations, Denies dyspnea, Denies dyspnea on exertion, Denies orthopnea and Reports slow heart rate Respiratory Respiratory: Denies cough, Denies dyspnea, Denies dyspnea on exertion and Denies wheezing Gastrointestinal Gastrointestinal: Denies abdominal pain, Denies change in bowel habits, Denies diarrhea, Denies nausea and Denies vomiting Genitourinary Genitourinary: Denies hematuria, Denies flank pain, Denies urinary incontinence and Denies urinary urgency Musculoskeletal Musculoskeletal: Denies back pain, Denies muscle weakness, Denies neck pain, Denies numbness and Denies tingling Integumentary/Breasts Skin/Breast: Denies pruritus, Denies erythema, Denies rash and Denies wounds Neurologic Neurologic: Denies behavioral changes, Denies confusion, Reports dizziness, Denies frequent falls, Denies loss of vision, Denies numbness, Denies tingling and Denies weakness Psychiatric Psychiatric: Denies anxiety, Denies behavioral changes, Denies confusion, Denies depression, Denies homicidal ideation and Denies suicidal ideation Endocrine Endocrine: Denies fatigue, Denies flushing and Denies palpitations Hematologic/Lymphatic Hematologic/Lymphatic: Denies easy bruising Allergic/Immunologic Allergic/Immunologic: Denies urticaria, Denies throat swelling and Denies wheezing Patient History <Ricardo Peacock PA-C - Last Filed: 09/18/21 17:18> Medical History (Updated 09/18/21 @ 17:18 by Ricardo Peacock PA-C) Healthy adult Social History household members: spouse Smoking Status: Never smoker alcohol intake: current Smoking Status: Never smoker alcohol intake frequency: holidays/special occasions only Substance Use Type: does not use Exam <Ricardo Peacock PA-C - Last Filed: 09/18/21 17:18> Initial Vital Signs Initial Vital Signs: Vital Signs Temperature 98.4 F 09/18/21 12:20 Pulse Rate 49 L 09/18/21 12:20 Respiratory Rate 16 09/18/21 12:20 Blood Pressure 179/89 H 09/18/21 12:20 Pulse Oximetry 97 09/18/21 12:20 Const General: cooperative, in distress and ill appearing Nutritional Appearance: average body habitus Orientation: Orientation [facility] Head: abrasion Ears: hearing grossly normal bilaterally, external ears normal and TM's normal bilaterally Nose: external nose normal and nares normal Face and sinus: normal facial exam and sinuses nontender Mouth: oral mucosae normal Teeth and gingiva: dentition normal and gingiva normal Throat: posterior oropharynx normal Eyes General: appearance normal, both eyes and all related structures Periorbital: periorbital findings normal Pupils: PERRL EOM: nystagmus Neck Neck: normal visual inspection and full ROM Resp Effort & Inspection: normal respiratory effort and able to speak in complete sentences Auscultation: clear to auscultation bilaterally Percussion: percussion normal Cardio Palpation: normal PMI Rate: bradycardic Rhythm: regular rhythm Heart Sounds: S1 normal and S2 normal GI Inspection: normal to inspection Palpation: soft and no hepatosplenomegaly Percussion: normal to percussion Auscultation: normal bowel sounds Skin General: no rashes or lesions noted Neuro General: patient alert, patient awake, patient oriented x3, tone normal, moves all extremities, no focal motor deficits and CN's II-XI intact bilaterally Cranial Nerves: nystagmus <Favio Stanley DO - Last Filed: 09/18/21 17:52> Initial Vital Signs Initial Vital Signs: Vital Signs Temperature 98.4 F 09/18/21 12:20 Pulse Rate 49 L 09/18/21 12:20 Respiratory Rate 16 09/18/21 12:20 Blood Pressure 179/89 H 09/18/21 12:20 Pulse Oximetry 97 09/18/21 12:20 Course <Ricardo Peacock PA-C - Last Filed: 09/18/21 17:18> Orders Ordered: ED Orders 09/18/21 12:15 BNP [NT-proBNP (BNP-Adult 18+)] Stat CBC Auto Diff [Complete Blood Count AUTO DIFF] Stat CMP [Comprehensive Metabolic Panel] Stat Lipase Stat cardiac panel [Troponin & CK Cardiac Panel] Stat 09/18/21 12:23 CT head/brain wo con Stat Chest [XR chest 1V] Stat 09/18/21 14:08 UA Complete [Urinalysis and Microscopic] Stat Discontinued Medications Atropine Sulfate (Atropine 1 Mg/10 Ml Syringe) 0.5 mg IV NOW ONE Stop: 09/18/21 14:14 Last Admin: 09/18/21 14:17 Dose: 0.5 mg Documented by: ATAYLOR Diazepam (Diazepam 10 Mg/2 Ml Syringe) 2 mg IV NOW ONE Stop: 09/18/21 15:41 Last Admin: 09/18/21 15:51 Dose: 2 mg Documented by: ATAYLOR Sodium Chloride (Normal Saline 0.9%) 1,000 mls @ 1,000 mls/hr IV BOLUS ONE Stop: 09/18/21 13:22 Last Infusion: 09/18/21 14:02 Dose: 0 mls/hr Documented by: Admin: 09/18/21 12:56 Dose: 1,000 mls/hr Documented by: PIETER Meclizine HCl (Meclizine Hcl 12.5 Mg Tablet) 25 mg PO NOW ONE Stop: 09/18/21 12:31 Last Admin: 09/18/21 12:57 Dose: 25 mg Documented by: PIETER Reevaluation(s) Reevaluation #1: Consulted the hospitalist on-call of which he suggested I contact Cardiology for approval for admission prior to. Reevaluation #2: RN reports fluid bolus and meclizine offer no change in his symptoms patient continuing to still have complaints of dizziness. Atropine 0.5 mg IV was ordered still pending cardiology. Vital Signs Vital signs: Vital Signs - 8 hr 09/18/21 12:20 09/18/21 12:23 09/18/21 12:41 Temperature 98.4 F Pulse Rate 49 L 53 L 56 L Respiratory Rate 16 15 Blood Pressure 179/89 H Blood Pressure [Orthostatic Standing] Pulse Oximetry 97 98 97 09/18/21 12:45 09/18/21 12:54 09/18/21 13:00 Temperature Pulse Rate 45 L 47 L 44 L Respiratory Rate 10 L 14 18 Blood Pressure 200/90 H 184/96 H 175/88 H Blood Pressure [Orthostatic Standing] Pulse Oximetry 99 99 99 09/18/21 13:15 09/18/21 13:30 09/18/21 13:31 Temperature Pulse Rate 57 L 59 L 55 L Respiratory Rate 14 15 17 Blood Pressure 196/84 H 206/93 H Blood Pressure [Orthostatic Standing] Pulse Oximetry 99 100 100 09/18/21 13:48 09/18/21 14:00 09/18/21 14:15 Temperature Pulse Rate 60 57 L 64 Respiratory Rate 17 17 22 Blood Pressure 202/95 H 164/77 H 181/86 H Blood Pressure [Orthostatic Standing] Pulse Oximetry 99 99 100 09/18/21 14:30 09/18/21 14:45 09/18/21 15:00 Temperature Pulse Rate 68 78 72 Respiratory Rate 16 20 17 Blood Pressure 165/81 H 170/84 H 172/90 H Blood Pressure [Orthostatic Standing] Pulse Oximetry 98 97 100 03/27/22 15:15 09/18/21 15:17 09/18/21 15:30 Temperature Pulse Rate 83 67 Respiratory Rate 17 17 Blood Pressure 162/96 H 167/92 H Blood Pressure [Orthostatic Standing] 162/96 H Pulse Oximetry 97 98 09/18/21 15:46 09/18/21 16:00 09/18/21 16:15 Temperature Pulse Rate 59 L 69 61 Respiratory Rate 18 17 19 Blood Pressure 172/88 H 162/81 H 166/80 H Blood Pressure [Orthostatic Standing] Pulse Oximetry 99 96 98 09/18/21 16:30 Temperature Pulse Rate 74 Respiratory Rate 17 Blood Pressure Blood Pressure [Orthostatic Standing] Pulse Oximetry 100 <Favio Stanley DO - Last Filed: 09/18/21 17:52> Orders Ordered: ED Orders 09/18/21 12:15 BNP [NT-proBNP (BNP-Adult 18+)] Stat CBC Auto Diff [Complete Blood Count AUTO DIFF] Stat CMP [Comprehensive Metabolic Panel] Stat Lipase Stat cardiac panel [Troponin & CK Cardiac Panel] Stat 09/18/21 12:23 CT head/brain wo con Stat Chest [XR chest 1V] Stat 09/18/21 14:08 UA Complete [Urinalysis and Microscopic] Stat Discontinued Medications Atropine Sulfate (Atropine 1 Mg/10 Ml Syringe) 0.5 mg IV NOW ONE Stop: 09/18/21 14:14 Last Admin: 09/18/21 14:17 Dose: 0.5 mg Documented by: PIETER Diazepam (Diazepam 10 Mg/2 Ml Syringe) 2 mg IV NOW ONE Stop: 09/18/21 15:41 Last Admin: 09/18/21 15:51 Dose: 2 mg Documented by: PIETER Sodium Chloride (Normal Saline 0.9%) 1,000 mls @ 1,000 mls/hr IV BOLUS ONE Stop: 09/18/21 13:22 Last Infusion: 09/18/21 14:02 Dose: 0 mls/hr Documented by: Admin: 09/18/21 12:56 Dose: 1,000 mls/hr Documented by: PIETER Meclizine HCl (Meclizine Hcl 12.5 Mg Tablet) 25 mg PO NOW ONE Stop: 09/18/21 12:31 Last Admin: 03/27/22 12:57 Dose: 25 mg Documented by: ATAYLOR Vital Signs Vital signs: Vital Signs - 8 hr 09/18/21 12:20 09/18/21 12:23 09/18/21 12:41 Temperature 98.4 F Pulse Rate 49 L 53 L 56 L Respiratory Rate 16 15 Blood Pressure 179/89 H Blood Pressure [Orthostatic Standing] Pulse Oximetry 97 98 97 09/18/21 12:45 09/18/21 12:54 09/18/21 13:00 Temperature Pulse Rate 45 L 47 L 44 L Respiratory Rate 10 L 14 18 Blood Pressure 200/90 H 184/96 H 175/88 H Blood Pressure [Orthostatic Standing] Pulse Oximetry 99 99 99 09/18/21 13:15 09/18/21 13:30 09/18/21 13:31 Temperature Pulse Rate 57 L 59 L 55 L Respiratory Rate 14 15 17 Blood Pressure 196/84 H 206/93 H Blood Pressure [Orthostatic Standing] Pulse Oximetry 99 100 100 09/18/21 13:48 09/18/21 14:00 09/18/21 14:15 Temperature Pulse Rate 60 57 L 64 Respiratory Rate 17 17 22 Blood Pressure 202/95 H 164/77 H 181/86 H Blood Pressure [Orthostatic Standing] Pulse Oximetry 99 99 100 09/18/21 14:30 09/18/21 14:45 09/18/21 15:00 Temperature Pulse Rate 68 78 72 Respiratory Rate 16 20 17 Blood Pressure 165/81 H 170/84 H 172/90 H Blood Pressure [Orthostatic Standing] Pulse Oximetry 98 97 100 09/18/21 15:15 09/18/21 15:17 09/18/21 15:30 Temperature Pulse Rate 83 67 Respiratory Rate 17 17 Blood Pressure 162/96 H 167/92 H Blood Pressure [Orthostatic Standing] 162/96 H Pulse Oximetry 97 98 09/18/21 15:46 09/18/21 16:00 09/18/21 16:15 Temperature Pulse Rate 59 L 69 61 Respiratory Rate 18 17 19 Blood Pressure 172/88 H 162/81 H 166/80 H Blood Pressure [Orthostatic Standing] Pulse Oximetry 99 96 98 09/18/21 16:30 Temperature Pulse Rate 74 Respiratory Rate 17 Blood Pressure Blood Pressure [Orthostatic Standing] Pulse Oximetry 100 MDM - Dizziness <Ricardo Peacock PA-C - Last Filed: 09/18/21 17:18> Differential Diagnosis Differential diagnosis: Likely acute vestibular neuronitis Lab Data Result diagrams: 09/18/21 12:15 09/18/21 12:15 Labs: Lab Results 09/18/21 09/18/21 09/18/21 Range/Units 12:15 12:15 14:08 WBC 6.1 (4.5-11.0) X10^3/uL RBC 4.64 (4.5-5.9) X10^6/uL Hgb 14.2 (13.5-17.5) g/dL Hct 40.8 L (41-53) % MCV 87.8 (80-100) fL MCH 30.5 (26-34) PG MCHC 34.7 (30-36) % RDW 14.7 (11.6-14.8) % Plt Count 173 (150-400) X10^3/uL Neut % (Auto) 80.2 H (50-75) % Lymph % (Auto) 10.9 L (25-40) % [place] % (Auto) 7.5 (3-14) % Eos % (Auto) 1.1 L (2-4) % Baso % (Auto) 0.3 (0-2) % Neut # (Auto) 4900 (4417-9224) /uL Lymph # (Auto) 700 L (5534-3910) /uL [place] # (Auto) 500 (0-900) /uL Eos # (Auto) 100 (0-450) /uL Baso # (Auto) 0 (0-100) /uL Sodium 138 (137-145) mmol/L Potassium 4.2 (3.4-5.1) mmol/L Chloride 109 H (98-107) mmol/L Carbon Dioxide 21 L (22-32) mmol/L BUN 16 (9-20) mg/dL Creatinine 1.00 (0.66-1.25) mg/dL Estimated GFR > 60.0 (>60) mL/min BUN/Creatinine Ratio 16.0 (6-22) Glucose 117 H (80-110) mg/dL Calcium 9.1 (8.4-10.2) mg/dL Total Bilirubin 0.7 (0.2-1.3) mg/dL AST 37 (17-59) IU/L ALT 21 (<50) IU/L Alkaline Phosphatase 61 (38-126) U/L Total Creatine Kinase 158 (55-170) U/L CK-MB (CK-2) 2.36 (<2.37) ng/mL CK-MB (CK-2) Rel Index 1.5 (1.5-5.0) % Troponin I < 0.012 (0.01-0.034) ng/mL NT-Pro-B Natriuret Pep 122 (<450) pg/mL Total Protein 7.3 (6.3-8.2) g/dL Albumin 4.4 (3.5-5.0) g/dL Globulin 2.9 (1.7-4.1) g/dL Albumin/Globulin Ratio 1.5 (1.0-2.8) Lipase 33 (23-300) U/L Urine Color Yellow Urine Appearance Clear Urine pH 7.5 (4.5-8.0) Ur Specific [place] 1.015 (1.000-1.035) Urine Protein Negative (Negative) Urine Glucose (UA) Trace H (Negative) g/dL Urine Ketones 1+ H (NEGATIVE) Urine Occult Blood Negative (Negative) Urine Nitrate Negative (Negative) Urine Bilirubin Negative (NEGATIVE) Urine Urobilinogen 0.2 (0.2) E.U./dL Ur Leukocyte Esterase Negative (NEGATIVE) Urine RBC None seen (0-5/HPF) Urine WBC 0-1/hpf (0-5/HPF) Ur Squamous Epith Cells 0-1 /hpf (0-5/HPF) Urine Bacteria Occasional (0-1) (None) Ur Culture Indicated? Cult not indicated Imaging Data CT scan - head: Radiologist's Impression: PROCEDURE:? CT HEAD/BRAIN WO CON ? INDICATIONS:? dizziness, h/o brain CA ? TECHNIQUE:? Noncontrast 4.5 mm thick angled axial sections acquired from the foramen magnum to the vertex, with coronal and sagittal reformats.? For radiation dose reduction, the following was used:? automated exposure control, adjustment of mA and/or kV according to patient size.? ? COMPARISON:? [facility], CR, XR CHEST 1V, 09/18/2021, 12:15.? (the a A prior brain MRI from 2010 is not available from the archive at the time of this dictation.) ? FINDINGS:? Image quality:? Excellent.? ? CSF spaces:? Basal cisterns are patent.? No extra-axial fluid collections.? The ventricles are symmetric in size and shape.? ? Brain:? In this patient with this given history, scrutiny is given to brain masses or mass effect.? No masses are seen.? No focal brain edema can be seen. ? No intracranial bleeds.? There is cerebral volume loss for age, with resultant ventricular and sulcal prominence.? There are periventricular and deep white matter chronic small vessel ischemic changes.? There is intracranial internal carotid artery atherosclerosis.? ? Skull and face:? Calvarium and visualized facial bones appear intact, without suspicious lesions.? ? Sinuses:? Visualized sinuses and mastoids are clear.? ? ? IMPRESSION:? To the limits of noncontrast head CT, no masses or mass effect can be seen.? No focal brain edema. ? If it would be helpful for clinical management decision making, please consider a dedicated, scheduled brain MRI for further evaluation (assuming that there is no contraindication).? ? ? Dictated by: Jeremi Nayak M.D. on 09/18/2021 at 11:46 ? ? Approved by: Jeremi Nayak M.D. on 09/18/2021 at 11:52?? MDM Narrative Medical decision making narrative: Patient was seen today for dizziness of which he states said started around 10:00 a.m. this morning while talking to his family on the front porch. Had an episode of vomiting he denies any chest pain diaphoresis syncope. All coming in the house he did strike his head against part of the door which caused a small abrasion. No history of previous fall dizziness remained unchanged was brought in by EMS. Patient did have episodes of bradycardia however his EKG did show evidence of just sinus bradycardia without any block or acute changes. After consulting with Cardiology they were of the understanding that his symptoms are not based on his bradycardia or anything related to his heart. 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 Both those were in the past and were treated. An MRI of the head is warranted however is not currently available. Patient will be admitted under observation and treat symptomatically and scheduled for an MRI tomorrow. <Favio Stanley, - Last Filed: 09/18/21 17:52> Lab Data Labs: Lab Results 09/18/21 09/18/21 09/18/21 Range/Units 12:15 12:15 14:08 WBC 6.1 (4.5-11.0) X10^3/uL RBC 4.64 (4.5-5.9) X10^6/uL Hgb 14.2 (13.5-17.5) g/dL Hct 40.8 L (41-53) % MCV 87.8 (80-100) fL MCH 30.5 (26-34) PG MCHC 34.7 (30-36) % RDW 14.7 (11.6-14.8) % Plt Count 173 (150-400) X10^3/uL Neut % (Auto) 80.2 H (50-75) % Lymph % (Auto) 10.9 L (25-40) % [place] % (Auto) 7.5 (3-14) % Eos % (Auto) 1.1 L (2-4) % Baso % (Auto) 0.3 (0-2) % Neut # (Auto) 4900 (2990-3317) /uL Lymph # (Auto) 700 L (1894-0194) /uL [place] # (Auto) 500 (0-900) /uL Eos # (Auto) 100 (0-450) /uL Baso # (Auto) 0 (0-100) /uL Sodium 138 (137-145) mmol/L Potassium 4.2 (3.4-5.1) mmol/L Chloride 109 H (98-107) mmol/L Carbon Dioxide 21 L (22-32) mmol/L BUN 16 (9-20) mg/dL Creatinine 1.00 (0.66-1.25) mg/dL Estimated GFR > 60.0 (>60) mL/min BUN/Creatinine Ratio 16.0 (6-22) Glucose 117 H (80-110) mg/dL Calcium 9.1 (8.4-10.2) mg/dL Total Bilirubin 0.7 (0.2-1.3) mg/dL AST 37 (17-59) IU/L ALT 21 (<50) IU/L Alkaline Phosphatase 61 (38-126) U/L Total Creatine Kinase 158 (55-170) U/L CK-MB (CK-2) 2.36 (<2.37) ng/mL CK-MB (CK-2) Rel Index 1.5 (1.5-5.0) % Troponin I < 0.012 (0.01-0.034) ng/mL NT-Pro-B Natriuret Pep 122 (<450) pg/mL Total Protein 7.3 (6.3-8.2) g/dL Albumin 4.4 (3.5-5.0) g/dL Globulin 2.9 (1.7-4.1) g/dL Albumin/Globulin Ratio 1.5 (1.0-2.8) Lipase 33 (23-300) U/L Urine Color Yellow Urine Appearance Clear Urine pH 7.5 (4.5-8.0) Ur Specific [place] 1.015 (1.000-1.035) Urine Protein Negative (Negative) Urine Glucose (UA) Trace H (Negative) g/dL Urine Ketones 1+ H (NEGATIVE) Urine Occult Blood Negative (Negative) Urine Nitrate Negative (Negative) Urine Bilirubin Negative (NEGATIVE) Urine Urobilinogen 0.2 (0.2) E.U./dL Ur Leukocyte Esterase Negative (NEGATIVE) Urine RBC None seen (0-5/HPF) Urine WBC 0-1/hpf (0-5/HPF) Ur Squamous Epith Cells 0-1 /hpf (0-5/HPF) Urine Bacteria Occasional (0-1) (None) Ur Culture Indicated? Cult not indicated Discharge Plan Departure Patient Disposition: Admitted as Observation Clinical Impression: Acute vestibular neuronitis Admit Date/Time: 09/18/21 17:51 Admit Provider: Ariel Guy <Favio Stanley DO - Last Filed: 09/18/21 17:52> Cosign ED Attending Cosignature Attestation: Dr Stanley Co-Sign Statement: I was available for consultation during this patient's emergency department visit. This chart is signed by myself for administrative purposes only. I did not have direct contact with this patient during this visit. They were seen independently by the APC.
[2021-09-18 12:33] LABS: Add Manual Diff / Slide Review NO; Basophils Absolute Auto 0 /uL (0-100); Basophils Percent Auto 0.3 % (0-2); Eosinophils Absolute Auto 100 /uL (0-450); Eosinophils Percent Auto 1.1 % (2-4); Hematocrit 40.8 % (41-53); Hemoglobin 14.2 g/dL (13.5-17.5); Lymphocytes Absolute Auto 700 /uL (1100-4500); Lymphocytes Percent Auto 10.9 % (25-40); Mean Corpuscular HGB Conc 34.7 % (30-36); Mean Corpuscular Hemoglobin 30.5 PG (26-34); Mean Corpuscular Volume 87.8 fL (80-100); Monocytes Absolute Auto 500 /uL (0-900); Monocytes Percent Auto 7.5 % (3-14); Neutrophils Absolute Auto 4900 /uL (1500-7000); Neutrophils Percent Auto 80.2 % (50-75); Platelet Count 173 X10^3/uL (150-400); Red Blood Cell Count 4.64 X10^6/uL (4.5-5.9); Red Cell Distribution Width 14.7 % (11.6-14.8); White Blood Cell Count 6.1 X10^3/uL (4.5-11.0)
[2021-09-18 12:38] LABS: Alanine Aminotransferase 21 IU/L (<50); Albumin 4.4 g/dL (3.5-5.0); Albumin Globulin Ratio 1.5 (1.0-2.8); Alkaline Phosphatase 61 U/L (38-126); Aspartate Aminotransferase 37 IU/L (17-59); Bilirubin Total 0.7 mg/dL (0.2-1.3); Blood Urea Nitrogen 16 mg/dL (9-20); Calcium 9.1 mg/dL (8.4-10.2); Carbon Dioxide 21 mmol/L (22-32); Chloride 109 mmol/L (98-107); Creatine Kinase 158 U/L (55-170); Estimated Glomerular Filt Rate > 60.0 mL/min (>60); Globulin 2.9 g/dL (1.7-4.1); Glucose 117 mg/dL (80-110); HEMOLYSIS 28 (0-50); Lipase 33 U/L (23-300); Potassium 4.2 mmol/L (3.4-5.1); Sodium 138 mmol/L (137-145); Total Protein 7.3 g/dL (6.3-8.2)
[2021-09-18 12:50] LABS: NT-proBNP (BNP-Adult 18+) 122 pg/mL (<450); Troponin I < 0.012 ng/mL (0.01-0.034)
[2021-09-18 12:53] LABS: CKMB % Relative Index 1.5 % (1.5-5.0); Creatine Kinase MB 2.36 ng/mL (<2.37)
[2021-09-18] MEDS: SODIUM CHLORIDE 0.9% 1,000 ML 1000 ML IV (12:56)
[2021-09-18] MEDS: MECLIZINE HCL 12.5 MG TABLET 25 MG PO (12:57)
[2021-09-18] MEDS: ATROPINE 1 MG/10 ML SYRINGE 0.5 MG IV (14:17)
[2021-09-18 14:23] LABS: Appearance Urine UA CLEAR; Bilirubin Urine UA NEGATIVE (NEGATIVE); Color Urine UA YELLOW; Glucose Urine UA TRACE g/dL (Negative); Ketones Urine UA 1+ (NEGATIVE); Leukocyte Esterase Urine UA NEGATIVE (NEGATIVE); Nitrite Urine UA NEGATIVE (Negative); Occult Blood Urine UA NEGATIVE (Negative); Protein Urine UA NEGATIVE (Negative); Specific Gravity Urine UA 1.015 (1.000-1.035); Urobilinogen Urine UA 0.2 E.U./dL (0.2); pH Urine UA 7.5 (4.5-8.0)
[2021-09-18 14:32] LABS: Bacteria Urine Occasional (0-1); Culture Indicated Urine Cult Not Indicated; RBC Urine None Seen (0-5/HPF); Squamous Epithelial Cell Urine 0-1 /HPF (0-5/HPF); WBC Urine 0-1/HPF (0-5/HPF)
--- NOTE | 2021-09-18 15:41 | PC.NURSE ---
Pt opening eyes, reports room spinning, stood for orthostatics and sensation worsens. Pt states he does not feel up to attempt walking, fears he would fall immediately. During conversation, pt states I must close my eyes now, room is spinning too much, reports his dizziness has improved since arrival but still significant. Ayush FISHMAN notified.
[2021-09-18] MEDS: diazePAM 10 MG/2 ML SYRINGE 2 MG IV (15:51)
--- NOTE | 2021-09-18 16:37 | PC.NURSE ---
Attempted to ambulate pt with Ayush FISHMAN, pt swaying forward upon initial stand, took 3 unsteady steps with max assist. Assisted back to bed.
--- NOTE | 2021-09-18 18:17 | DI.MRI.S_ITS ---
PROCEDURE: MR HEAD/BRAIN WO CON INDICATIONS: vertigo, cva or mass? TECHNIQUE: Non-contrast axial T1 spin echo, axial T2 fast spin echo, sagittal and axial FLAIR, coronal T2 fast spin echo, axial gradient echo, axial diffusion and ADC through the brain. COMPARISON: [facility], CT, CT HEAD/BRAIN WO CON, 09/18/2021, 12:31. FINDINGS: Image quality: Excellent. CSF spaces: Ventricles appear symmetric in size and shape. Basal cisterns are patent. No extra-axial fluid collections. Brain: No intracranial bleeds or mass effects. There is cerebral volume loss for age. There are periventricular and deep white matter chronic small vessel ischemic changes. Brainstem appears normal. Diffusion-weighted images show no acute ischemic insults. No chronic ischemic insults. Normal intravascular flow voids are present. Skull and face: Calvarial bone marrow is normal in signal. Orbits are normal. Sinuses: Mild mucosal thickening involving the ethmoid and maxillary sinuses bilaterally. The mastoids are clear. IMPRESSION: 1. No acute intracranial abnormalities. A cause for vertical is not identified. 2. Cerebral volume loss and chronic microvascular ischemic changes. 3. Mild paranasal sinus mucosal thickening bilaterally. Dictated by: Sherie Castro M.D. on 09/19/2021 at 9:07 Approved by: Sherie Castro M.D. on 09/19/2021 at 9:38
[2021-09-18 18:28] LABS: COVID19 -Nasal RAPID Negative (Negative)
--- NOTE | 2021-09-18 18:51 | PC.NURSE ---
Pt to room 215 via stretcher and transferred to bed via slider board. Pt denies shortness of breath, nausea, or dizziness at this time. Pt admitted and given water to drink and snacks since he had not eaten since breakfast. Pt denies pain. Pt oriented to room, call light, bed controls, and tv controls. Spouse at the bedside. Pt agrees to call for assistance as needed. Bed alarm on for safety.
--- NOTE | 2021-09-18 22:02 | P.HP_ITS ---
History of Present Illness History of Present Illness Date Patient Seen: 09/18/21 Time Patient Seen: 18:00 Chief complaint: Dizzy Narrative: Mr. 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 He states he was in his normal state of health when he began experiencing nausea, vomiting, and room spinning sensation. He has not had symptoms like this previously. He has chronic bradycardia, and has seen cardiology for this previously. He has not had lightheadedness, chest pain, shortness of breath. In the ED workup was done, vitals notable for bradycardia and elevated blood pressure. Labs notable for WBC 6.1, hgb 14.2, plts 173. Creatinine 1.00. Troponin negative. Urine unremarkable. CT head showed no acute process. Cardiology consulted and did not think his vertigo was related to bradycardia. I did perform tess-hallplike then followed by Rafat maneuver, and while he said he had some improvement he still had vertigo and was admitted for further treatment. Family history: son with BPPV Social history: rare alcohol use Patient History Medical History (Updated 09/18/21 @ 17:18 by Ricardo Peacock PA-C) Healthy adult Family & Social History Social History: household members spouse,family Prior Living Arrangements House Safety & Behavioral: Feels Safe in Current Yes Environment Been Physically Hurt or No Threatened By a Person Suicidal Ideation Description None Suicide Plan Description No Plan Tobacco & Substance use: Smoking Status Never smoker alcohol intake current alcohol intake frequency holiday/special occasion Substance Use Type does not use Meds Home Medications and Allergies Home Medications Medication Instructions Recorded Confirmed Type No Known Home Medications 09/18/21 09/18/21 History Allergies Allergy/AdvReac Type Severity Reaction Status Date / Time No Known Drug Allergies Allergy Verified 07/05/21 15:03 Review of Systems Review of Systems Narrative: 14 systems reviewed and negative aside from what is noted in HPI Exam Vital Signs (past 8 hours): - 09/18/21 14:15 09/18/21 14:30 09/18/21 14:45 Temperature Pulse Rate 64 68 78 Respiratory Rate 22 16 20 Blood Pressure 181/86 H 165/81 H 170/84 H Blood Pressure [Orthostatic Standing] Pulse Oximetry 100 98 97 09/18/21 15:00 09/18/21 15:15 09/18/21 15:17 Temperature Pulse Rate 72 83 Respiratory Rate 17 17 Blood Pressure 172/90 H 162/96 H Blood Pressure [Orthostatic Standing] 162/96 H Pulse Oximetry 100 97 09/18/21 15:30 09/18/21 15:46 09/18/21 16:00 Temperature Pulse Rate 67 59 L 69 Respiratory Rate 17 18 17 Blood Pressure 167/92 H 172/88 H 162/81 H Blood Pressure [Orthostatic Standing] Pulse Oximetry 98 99 96 09/18/21 16:15 09/18/21 16:30 09/18/21 20:02 Temperature 97.1 F L Pulse Rate 61 74 63 Respiratory Rate 19 17 18 Blood Pressure 166/80 H 164/80 H Blood Pressure [Orthostatic Standing] Pulse Oximetry 98 100 100 Oxygen Delivery Method Room Air Oxygen Flow Rate 0 Narrative Exam Narrative: GEN: no acute distress HEENT: moist mucous membranes, PERRL CV: bradycardic, no murmurs PULM: clear bilaterally ABD: soft, nontender, nondistended, no organomegaly EXT: warm and well perfused, no edema NEURO: no focal deficits noted, slightly unsteady and swaying while sitting up PSYCH: pleasant, cooperative Objective Labs Result Diagrams: 09/18/21 12:15 09/18/21 12:15 Labs: Laboratory Results - last 24 hr 09/18/21 09/18/21 09/18/21 12:15 12:15 14:08 WBC 6.1 RBC 4.64 Hgb 14.2 Hct 40.8 L MCV 87.8 MCH 30.5 MCHC 34.7 RDW 14.7 Plt Count 173 Neut % (Auto) 80.2 H Lymph % (Auto) 10.9 L [place] % (Auto) 7.5 Eos % (Auto) 1.1 L Baso % (Auto) 0.3 Neut # (Auto) 4900 Lymph # (Auto) 700 L [place] # (Auto) 500 Eos # (Auto) 100 Baso # (Auto) 0 Sodium 138 Potassium 4.2 Chloride 109 H Carbon Dioxide 21 L BUN 16 Creatinine 1.00 Estimated GFR > 60.0 BUN/Creatinine Ratio 16.0 Glucose 117 H Calcium 9.1 Total Bilirubin 0.7 AST 37 ALT 21 Alkaline Phosphatase 61 Total Creatine Kinase 158 CK-MB (CK-2) 2.36 CK-MB (CK-2) Rel Index 1.5 Troponin I < 0.012 NT-Pro-B Natriuret Pep 122 Total Protein 7.3 Albumin 4.4 Globulin 2.9 Albumin/Globulin Ratio 1.5 Lipase 33 Urine Color Yellow Urine Appearance Clear Urine pH 7.5 Ur Specific [place] 1.015 Urine Protein Negative Urine Glucose (UA) Trace H Urine Ketones 1+ H Urine Occult Blood Negative Urine Nitrate Negative Urine Bilirubin Negative Urine Urobilinogen 0.2 Ur Leukocyte Esterase Negative Urine RBC None seen Urine WBC 0-1/hpf Ur Squamous Epith Cells 0-1 /hpf Urine Bacteria Occasional (0-1) Ur Culture Indicated? Cult not indicated SARS-CoV-2 (PCR) 09/18/21 18:07 WBC RBC Hgb Hct MCV MCH MCHC RDW Plt Count Neut % (Auto) Lymph % (Auto) [place] % (Auto) Eos % (Auto) Baso % (Auto) Neut # (Auto) Lymph # (Auto) [place] # (Auto) Eos # (Auto) Baso # (Auto) Sodium Potassium Chloride Carbon Dioxide BUN Creatinine Estimated GFR BUN/Creatinine Ratio Glucose Calcium Total Bilirubin AST ALT Alkaline Phosphatase Total Creatine Kinase CK-MB (CK-2) CK-MB (CK-2) Rel Index Troponin I NT-Pro-B Natriuret Pep Total Protein Albumin Globulin Albumin/Globulin Ratio Lipase Urine Color Urine Appearance Urine pH Ur Specific [place] Urine Protein Urine Glucose (UA) Urine Ketones Urine Occult Blood Urine Nitrate Urine Bilirubin Urine Urobilinogen Ur Leukocyte Esterase Urine RBC Urine WBC Ur Squamous Epith Cells Urine Bacteria Ur Culture Indicated? SARS-CoV-2 (PCR) Negative Assessment & Plan Assessment & Plan narrative: Mr. Ricardo is a 76M with remote history of brain lesion and squamous cell cancer of the tongue who presents with vertigo. 1. Acute vertigo -attempted rafat maneuver with some improvement, but not resolution of symptoms -meclizine did not resolve symptoms -doubt this is related to chronic bradycardia -continue meclizine -ordered MRI to rule out mass vs cva vs other etiology, possibility of BPPV as etiology still remains 2. Chronic bradycardia -appears to be asymptomatic at this point -continue to monitor CODE: Full Proxy: Mai Ricardo, spouse I have utilized all available resources to reconcile the patient's home medications. Time Spent With Patient Critical Care time: I spent a total of [] minutes of critical care time on this patient's care today; this time is exclusive of procedural time. Quality VTE Deep Vein Thrombosis/Pulmonary Embolism Present on Admission: No MIPS - Admit I confirm the patient?s Advance Care Plan is present, Code status is documented, Surrogate decision maker is in patient?s record [If Yes, STOP here]: Yes
[2021-09-19] VITALS (8 sets, daily range): BP systolic 167–183; BP diastolic 81–103; PULSE 45–73; RESP 13–18; TEMP 36.4–37; O2SAT 95–100
[2021-09-19 05:32] LABS: Add Manual Diff / Slide Review NO; Basophils Absolute Auto 100 /uL (0-100); Eosinophils Absolute Auto 100 /uL (0-450); Eosinophils Percent Auto 1.6 % (2-4); Hematocrit 43.5 % (41-53); Hemoglobin 14.8 g/dL (13.5-17.5); Lymphocytes Absolute Auto 1100 /uL (1100-4500); Lymphocytes Percent Auto 18.8 % (25-40); Mean Corpuscular HGB Conc 34.1 % (30-36); Mean Corpuscular Hemoglobin 30.2 PG (26-34); Mean Corpuscular Volume 88.7 fL (80-100); Monocytes Absolute Auto 500 /uL (0-900); Monocytes Percent Auto 7.8 % (3-14); Neutrophils Absolute Auto 4200 /uL (1500-7000); Neutrophils Percent Auto 69.8 % (50-75); Platelet Count 182 X10^3/uL (150-400); Red Cell Distribution Width 14.5 % (11.6-14.8); White Blood Cell Count 6.1 X10^3/uL (4.5-11.0)
[2021-09-19 05:45] LABS: BUN Creatinine Ratio 15.7 (6-22); Blood Urea Nitrogen 13 mg/dL (9-20); Calcium 9.3 mg/dL (8.4-10.2); Carbon Dioxide 22 mmol/L (22-32); Chloride 110 mmol/L (98-107); Estimated Glomerular Filt Rate > 60.0 mL/min (>60); Glucose 91 mg/dL (80-110); HEMOLYSIS < 15 (0-50); Potassium 3.5 mmol/L (3.4-5.1); Sodium 139 mmol/L (137-145)
[2021-09-19] MEDS: POTASSIUM CHLORIDE 20 MEQ TAB 40 MEQ PO (10:18)
[2021-09-19] MEDS: SODIUM CHLORIDE 0.9% FLUSH 10 ML IV (10:18)
[2021-09-19] MEDS: MECLIZINE HCL 12.5 MG TABLET 25 MG PO (10:18)
--- NOTE | 2021-09-19 11:10 | PT.IIE ---
Medical History (Last Reviewed 09/18/21 @ 12:31 by Ricardo Peacock PA-C) Healthy adult Physical Therapy Inpatient Evaluation/Re-Eval M1 PT/OT-IP Prior Functional Status Start: 09/19/21 08:58 Freq: NEEDED Status: Active Protocol: Document 09/19/21 11:10 AW (Rec: 09/19/21 12:15 AW [id number]) Medical Review Prior Functional Status Medical History Reviewed Yes Communication WNL. Pt is an effective verbal communicator. Mobility and Gait Independent without assistive device and without meaningful limit. 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 Activities of Daily Living and IADL's Independent. Pt drives. Prior Functional Level (Other details) Jaquan had a brain mass that apparently resolved without treatment ~15 years ago. Pt denies ever having had dizziness like his current symptoms before this episode. He has asymptomatic bradycardia at baseline. Cardiology was consulted and did not believe dizziness was related. His daughter and son live with him and both had COVID in June. Pt was also sick but did not do a COVID test but was likely positive. Social History Household Members spouse,family Living Arrangements House Number of Floors (Floors) Two Floors Number of Stairs To Enter/Railing? 6 GURPREET with narrow B rails. 6 steps up to main living level also with narrow B rails. Home Environment High Toilet,Walk in Shower, Built-In Shower Seat Home Equipment Front Wheel Walker,Straight Cane Employment Status Retired Additional Social History Comment Pt has an adjustable bed. He lives with his , Mai, who occasionally uses a 4WW due to arthritis. His adult son and daughter also live with him and both work. He is retired from the [employer] force. M2 PT-IP Current Condition Start: 09/19/21 08:58 Freq: NEEDED Status: Active Protocol: Document 09/19/21 11:10 AW (Rec: 09/19/21 12:15 AW [id number]) Physical Therapy Current Condition Current Condition Evaluation Date 09/19/21 Treatment Diagnosis dizziness, nausea; impaired balance, mobility and gait Onset Date 09/18/21 M3 PT-IP Subjective Start: 09/19/21 08:58 Freq: NEEDED Status: Active Protocol: Document 09/19/21 11:10 AW (Rec: 09/19/21 12:15 AW [id number]) Subjective Physical Therapy Visit Type Type Initial Evaluation Visit Start Time 10:30 Visit Stop Time 11:10 Total Visit Minutes 40 Notes Pt's , Mai, was present throughout evaluation. Per H&P, hospitalist did perform Aurelio maneuver last night with some improvement in symptoms. Physical Therapy Visit Comments Patient Comments I feel like the room is ' notching' toward the right Patient Goals Improve dizziness, return home . Therapy Pain Assessment Pain When Pain Assessed During Mobility Pain Present Pain Present Denied Pain M4 PT-IP Mobility and Gait Start: 09/19/21 08:58 Freq: NEEDED Status: Active Protocol: Document 09/19/21 11:10 AW (Rec: 09/19/21 12:15 AW [id number]) PT-Bed Mobility Assessment Rolling Type of Rolling Bilateral Level of Assist Standby Assistance Supine to Sit Supine to Sit Standby Assistance Sit to Supine Sit to Supine Standby Assistance PT-Transfer Assessment Sit to and From Stand Sit to and from Stand Contact Guard Assistance Equipment Transfer Assistive Device None,Gait Belt Transfers Transfer Destination Bed Transfer Technique pt amb CGA Transfer Ability Level of Assist Standby Assistance,Contact Guard Assistance Comments Mobility Comments Pt was lying in bed as PT arrived. No resting nystagmus was apparent. Supine BP was 175/92 HR 50. He sat up on right EOB and immediately reported dizziness. Pt's right eye rested nose-alarcon and did not track smoothly to the right. Positive nytagmus which appeared to be right-beating. Pt agreed to [place] Hallpike and Aurelio if indicated. See Other Assessment for details. Pt reported improved symptoms and agreed to ambulate to the toilet. Seated BP before ambulating was 185/85 HR 51. He stood CGA but without complaint of dizziness. He ambulated to the toilet CGA and stood to void. He turned to his left and had LOB. He reached for the grab bar and PT provided min assist for recovery. He walked back to the bed CGA and sat EOB. Return to supine was SBA. Pt was left with call light and tray table in reach. Gait Assessment Gait Gait Assistance Required: Contact Guard Assist Distance (Feet) 15 Assistive Devices Assistive Device None,Gait Belt Orthotic/Prosthetic Devices or Brace: No Gait Deviations General Gait Pattern Decreased Stride Length,Wide Based Gait Factors Limiting Gait Function Factors Limiting Gait Function Poor Balance Comments Gait Comments See mobility comments for details. Stair Climbing Assessment Comments Stair Climbing Comments Not assessed. PT-Balance Assessment Sitting Balance and Reactions Static Sitting Balance Ability Good Dynamic Sitting Balance Ability Good Standing Balance and Reactions Static Standing Balance Ability Fair Dynamic Standing Balance Ability Fair Device Used no AD M5 PT-IP Objective Assessments Start: 09/19/21 08:58 Freq: NEEDED Status: Active Protocol: Document 09/19/21 11:10 AW (Rec: 09/19/21 12:15 AW [id number]) Orientation Orientation/Cognition Level of Alertness Alert Orientation Name,Day of Week,Place, Situation Language Function Ability No Deficits Noted Safety Awareness Understands Safety Issues Gross Range of Motion Upper Extremity ROM Assessment Within Functional Limits Lower Extremity ROM Assessment Within Functional Limits Strength Upper Extremity Strength Assessment Within Functional Limits Lower Extremity Strength Assessment Within Functional Limits Sensation Assessment Sensation Gross Sensation WNL Other Assessments Other Other Assessments Oculomotor screen was significant for R abducens weakness and poor lateral tracking R eye. Convergence/ divergence appeared normal. Pt had positive right-beating nystagmus and agreed to [place] Hall[place] assessment and Aurelio maneuver. DHP was positive with R head rotation and pt tolerated Aurelio x 3 with improving symptoms each time but not full resolution. M6 PT-IP Treatment Start: 09/19/21 08:58 Freq: NEEDED Status: Active Protocol: Document 09/19/21 11:10 AW (Rec: 09/19/21 12:15 AW [id number]) Physical Therapy Treatment Education Education Provided Safety M7 PT-IP Assessment and Plan Start: 09/19/21 08:58 Freq: NEEDED Status: Active Protocol: Document 09/19/21 11:10 AW (Rec: 09/19/21 12:15 AW [id number]) PT Summary Assessment and Plan Potential Rehabilitation Potential Good Status of Condition at Evaluation Evolving Summary Impairments Balance,Bed Mobility,Transfers ,Gait Assessment Summary Jaquan is a 76 yo man with sudden onset dizziness, nausea, and impaired balance yesterday. He is independent in all regards at baseline. Symptoms improved after Aurelio maneuver by hospitalist yesterday evening and by this PT today but still not fully resolved. Pt did have possible COVID infection in June but neuritis seems less likely than BPPV. This PT treated posterior canalithiasis. Vestibular therapist will see pt this PM for further assessment and possible treatment. PT anticipates pt will be safe to return home once medically stable and would likely benefit from outpatient vestibular PT. Goals Bed Mobility Goal Independent Transfer Goal Independent Gait Goal Independent Gait Distance 200 Other Goals - up/down 12 steps with B rails SBA Days to Meet Goals 2 Frequency of Treatment Frequency Of Treatment Twice a Day Treatment Plan Physical Therapy Treatment Plan Bed Mobility Training,Transfer Training,Gait Training, Balance Retraining, Neuromuscular Re-ed Other Recommendations and Next Treatment vestibular assessment Focus Recommendations To Nursing Amount of Assist Needed 1 Person Assist Discharge Recommendations PT Discharge Recommendations Home with Assistance, Outpatient PT Transportation Needs at Discharge Private Vehicle
[2021-09-19] MEDS: hydroCHLOROthiazide 25 MG TABLET PO (12:53)
--- NOTE | 2021-09-19 13:39 | CM.DANOTE ---
Patient is a 76 yo male who was admitted on 09/18/21 for Dizzy. Pt has [employer] and [employer] for insurance and his PCP is Magaly Gamino. EMR was reviewed. Per MD, pt with baseline of brain lesion and tongue CA and was admitted for acute vertigo and r/o CVA. MRI was ordered and pt was taken to imaging. Per PT, pt participated well and recommending home with family assist and outpt PT. 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 Pt's adult son and Dtr both live with them as well and help on the farm and another son lives nearby. Pt denies any hx of HH or SNF but states he has a cane and walker at home from a previous knee surgery. Pt and spouse do not anticipate any needs at d/c and are just hopeful to get a resolution from pt's dizziness/vertigo. Plan: SW to follow closely for MRI results and further PT this afternoon to determine if vestibular therapy will be helpful in resolving pt's dizziness. SW to follow for any further identified discharge planning needs. CHIDI Garcia Discharge Planning/Care Management CM Discharge Assessment Start: 09/19/21 13:19 Freq: Status: Active Protocol: Document 09/19/21 13:19 BF (Rec: 09/19/21 13:39 BF [id number]) Discharge Planning Assessment Assigned Soliciting Freight Agent CHIDI Mcmanus DPOA/Assigned Designee Name spouse Mai Contact Information [phone] Advance Directives? Yes Advance Directives on File No: states full code History Provided By Patient,Significant Other, Medical Record Has Patient been admitted in last 30 No days? Prior Living Arrangements House Household Members spouse,family Type of transporation used prior to Drives own vehicle admit Independent with ADL's Yes Is patient alert and oriented? Yes Caregiver for Another No DME Already Rented / Owned FWW / Walker,Cane Comment But doesn't doesn't use DME but has at home from prior knee surg Patient/Family Preference OP PT Therapy Barriers to Discharge No Discharge Plan Home Community Services Physical Therapy Transportation Arrangement Spouse is bedside and can transport at d/c Referrals Initiated None needed Additional Comment Follow for MRI and further PT Whiteboard Updated in Patient Room with Yes name and ext. # of Soliciting Freight Agent Review Status In Process Please Provide Date Initial DC 09/19/21 Assessment Was Performed Next Review Type Continued Stay Review
--- NOTE | 2021-09-19 15:10 | PT.IPTN ---
Physical Therapy Treatment Note M2 PT-IP Current Condition Start: 09/19/21 08:58 Freq: NEEDED Status: Discharge Protocol: Document 09/19/21 14:30 DCW (Rec: 09/19/21 17:48 DCW [id number]) Physical Therapy Current Condition Current Condition Evaluation Date 09/19/21 Treatment Diagnosis dizziness, nausea; impaired balance, mobility and gait Onset Date 09/18/21 M3 PT-IP Subjective Start: 09/19/21 08:58 Freq: NEEDED Status: Discharge Protocol: Document 09/19/21 14:30 DCW (Rec: 09/19/21 17:48 DCW [id number]) Subjective Physical Therapy Visit Type Type Treatment Note Visit Start Time 14:30 Visit Stop Time 15:10 Total Visit Minutes 40 Notes Pt continues to complain of vertigo, mainly upon sitting, feels more comfortable in bed with 30? incline Physical Therapy Visit Comments Patient Comments I'm better than yesterday, but it's still there M4 PT-IP Mobility and Gait Start: 09/19/21 08:58 Freq: NEEDED Status: Discharge Protocol: Document 09/19/21 14:30 DCW (Rec: 09/19/21 17:48 DCW [id number]) Gait Assessment Gait Gait Assistance Required: Standby Assistance Assistive Devices Assistive Device Front Wheeled Walker Gait Deviations General Gait Pattern Decreased Stride Length,Wide Based Gait Factors Limiting Gait Function Factors Limiting Gait Function Poor Balance Comments Gait Comments Pt ambulated to restroom to urinate and back to the bed SBA. Pt used FWW to return, felt more stable, still had slight self-corrected LOB when turning too quickly. M5 PT-IP Objective Assessments Start: 09/19/21 08:58 Freq: NEEDED Status: Discharge Protocol: Document 09/19/21 14:30 DCW (Rec: 09/19/21 17:48 DCW [id number]) Other Assessments Other Other Assessments Pt was sat up in bed, immediately showing increased right horizontal nystagmus, sustained for entirety of treatment session. Nystagmus persisted during smooth pursuit and saccadic testing. Left thrust test was very significantly positive, right was WNL. M6 PT-IP Treatment Start: 09/19/21 08:58 Freq: NEEDED Status: Discharge Protocol: Document 09/19/21 14:30 DCW (Rec: 09/19/21 17:48 [facility] [id number]) Physical Therapy Treatment Education Education Provided Safety Other Treatments Other Treatment Performed X1 exercises, education of VN, recommendation for out- patient vestibular rehabilitation M7 PT-IP Assessment and Plan Start: 09/19/21 08:58 Freq: NEEDED Status: Discharge Protocol: Document 09/19/21 14:30 DCW (Rec: 09/19/21 17:48 DCW [id number]) PT Summary Assessment and Plan Summary Assessment Summary Pt presents with signs and symptoms of left-sided vestibular neuritis. Sustained horizontal nystagmus beating away from affected side is an expected sign in the acute phase, and pt demonstrates a very positive left thrust test , indicating substantial left- sided unilateral hypofunction. DDx of labrynthitis, unlikely due to no complaints of hearing loss in affected ear. Pt unlikely to benefit from further in-patient rehab, and was instructed to contact PCP for an outpatient referral for vestibular rehabilitation. Pt is still in the acute phase, and will likely need to take it easy for the next 1-2 weeks , until symptoms subside a bit , and then will greatly benefit from vestibular rehabilitation. Discussed with pt and importance of rehab, overview of vestibular neuritis, and expected outcomes. Goals Bed Mobility Goal Independent Transfer Goal Independent Gait Goal Independent Gait Distance 200 Other Goals - up/down 12 steps with B rails SBA Days to Meet Goals 2 Discharge Recommendations PT Discharge Recommendations Home with Assistance, Outpatient PT Transportation Needs at Discharge Private Vehicle
--- NOTE | 2021-09-19 16:04 | PM.DS.1 ---
History of Present Illness History of Present Illness Date Patient Seen: 09/19/21 Time Patient Seen: 16:04 Chief complaint: Dizzy Narrative: Per Dr. Guy, Mr. 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 He states he was in his normal state of health when he began experiencing nausea, vomiting, and room spinning sensation. He has not had symptoms like this previously. He has chronic bradycardia, and has seen cardiology for this previously. He has not had lightheadedness, chest pain, shortness of breath. In the ED workup was done, vitals notable for bradycardia and elevated blood pressure. Labs notable for WBC 6.1, hgb 14.2, plts 173. Creatinine 1.00. Troponin negative. Urine unremarkable. CT head showed no acute process. Cardiology consulted and did not think his vertigo was related to bradycardia. I did perform tess-hallplike then followed by Aurelio maneuver, and while he said he had some improvement he still had vertigo and was admitted for further treatment. Family history: son with BPPV Social history: rare alcohol use Discharge Providers Provider Date of admission: 09/18/21 17:51 Discharge Date: 09/19/21 Primary care physician: Magaly Gamino MD Consults: 09/18/21 18:16 Consult to Physical Therapy Evaluate & Treat Comment: Physician Instructions: Evaluate and Treat Discharge provider: Anthony Fregoso DO Summary Hospital Course Discharge Diagnosis: 1. Vestibular Neuritis or BPPV. 2. HTN 3. Sinus bradycardia Hospital Course: This is a 76-year-old male admitted with dizziness and difficulty with ambulation. He was given meclizine with some improvement. MRI was performed given severity of his presentation and was negative for acute infarcts. He was seen by Physical therapy and later a vestibular therapist. Exam was most consistent with a peripheral vertigo with horizontal nystagmus noted primarily when turning his head to the right. It is difficult to tell at this time if symptoms are due to a vestibular neuritis or BPPV but are very likely peripheral in nature. Other than hypertension, he has no other contraindications to steroid therapy. I have started and prescribed him 10 day steroid taper to complete at home. For his hypertension he was started on hydrochlorothiazide with a mild improvement. He was also prescribed meclizine to take as needed for continued symptoms. He does have a walker and assistive devices at home and the patient was comfortable with discharge home at this time. He was eating and tolerating a diet and was able to ambulate to the bathroom with a walker. I do recommend follow-up with his primary care provider ideally before the end of this week, at the latest next week for continued monitoring of his symptoms as well as probable further adjustment in his antihypertensive medications. He was also noted to have a bradycardia with heart rates as low as the 30s, it is not currently believe that these at the results of his symptoms given physical exam findings and his EKG did show a sinus bradycardia. Further consideration as an outpatient could be made for further monitoring with a Holter device, but is not felt likely that his symptoms were cardiac in nature at this time. Exam Vital Signs (past 8 hours): - 09/19/21 08:24 09/19/21 09:00 09/19/21 09:11 Temperature 98.1 F 98.5 F Pulse Rate 63 51 L Respiratory Rate 16 13 Blood Pressure 183/103 H 178/81 H Pulse Oximetry 97 100 95 09/19/21 13:10 09/19/21 13:45 Temperature 98.6 F Pulse Rate 45 L 51 L Respiratory Rate 14 Blood Pressure 180/88 H 167/87 H Pulse Oximetry 100 Oxygen Delivery Method Room Air Oxygen Flow Rate 0 Narrative Exam Narrative: GEN: no acute distress HEENT: moist mucous membranes, PERRL CV: bradycardic, no murmurs PULM: clear bilaterally ABD: soft, nontender, nondistended, no organomegaly EXT: warm and well perfused, no edema NEURO: no focal deficits noted, slight horizontal nystagumus with rotating head to the right, slight dizziness reported but able to sit up and rotate head steadily. PSYCH: pleasant, cooperative Objective Labs Result Diagrams: 09/19/21 05:10 09/19/21 05:10 Labs: Laboratory Results - last 24 hr 09/18/21 09/19/21 09/19/21 18:07 05:10 05:10 WBC 6.1 RBC 4.90 Hgb 14.8 Hct 43.5 MCV 88.7 MCH 30.2 MCHC 34.1 RDW 14.5 Plt Count 182 Neut % (Auto) 69.8 Lymph % (Auto) 18.8 L Arthur % (Auto) 7.8 Eos % (Auto) 1.6 L Baso % (Auto) 2.0 Neut # (Auto) 4200 Lymph # (Auto) 1100 Arthur # (Auto) 500 Eos # (Auto) 100 Baso # (Auto) 100 Sodium 139 Potassium 3.5 Chloride 110 H Carbon Dioxide 22 BUN 13 Creatinine 0.83 Estimated GFR > 60.0 BUN/Creatinine Ratio 15.7 Glucose 91 Calcium 9.3 SARS-CoV-2 (PCR) Negative [facility] Medical History (Updated 09/18/21 @ 17:18 by Ricardo Peacock PA-C) Healthy adult Social History household members: spouse and family Smoking Status: Never smoker alcohol intake: current Discharge Plan Discharge Plan Patient Disposition: Home Provider Discharge Comment: You were admitted to the hospital with dizziness. MRI negative for stroke. You were started on medications for high blood pressure and steroids for possible vestibular neuritis. Please follow up with PCP for vestibular rehab as outpatient and BP management. Discharge orders & Medications Prescriptions: New prednisone 10 mg tablet See Rx Instructions .ROUTE .COMPLEX Qty: 35 0RF Rx Instructions: 60 mg daily x4 days, followed by 40 mg day 5, 30 mg on day 6, 20 mg day 7, 10 mg days 8-9. meclizine 25 mg tablet 25 mg PO QID PRN (Reason: dizziness) 30 Days Qty: 120 0RF hydrochlorothiazide 25 mg tablet 25 mg PO DAILY 30 Days Qty: 30 0RF Follow up/Referrals: Magaly Gamino MD [Primary Care Provider] - Discharge Data Primary Care Provider: Magaly Gamino Attending Provider: Ariel Guy VTE Deep Vein Thrombosis/Pulmonary Embolism Present on Admission: No
[2021-09-19] MEDS: predniSONE 20 MG TABLET 60 MG PO (16:20)
--- NOTE | 2021-09-19 17:02 | PC.NURSE ---
Addendum entered by Ashley Mandujano R.N. 09/19/21 17:29: Pt leaves with spouse, escorted by STOVE CLEANER down to private vehicle for ride home. Original Note: Discharge instructions reviewed with patient and spouse who verbalize understanding, also will steel pickler Rx at pharmacy and will follow up with PCP. Deny any questions or concerns. Saline lock dc'd with cath tip intact, no bleeding at site. Patient removed from tele. Patient presently eating off dinner tray; plans to leave hospital with in private vehicle after eating.
--- NOTE | 2021-09-19 17:48 | PT.IPTN ---
Physical Therapy Treatment Note M2 PT-IP Current Condition Start: 09/19/21 08:58 Freq: NEEDED Status: Discharge Protocol: Document 09/19/21 14:30 DCW (Rec: 09/19/21 17:48 DCW [id number]) Physical Therapy Current Condition Current Condition Evaluation Date 09/19/21 Treatment Diagnosis dizziness, nausea; impaired balance, mobility and gait Onset Date 09/18/21 M3 PT-IP Subjective Start: 09/19/21 08:58 Freq: NEEDED Status: Discharge Protocol: Document 09/19/21 14:30 DCW (Rec: 09/19/21 17:48 DCW [id number]) Subjective Physical Therapy Visit Type Type Treatment Note Visit Start Time 14:30 Visit Stop Time 15:10 Total Visit Minutes 40 Notes Pt continues to complain of vertigo, mainly upon sitting, feels more comfortable in bed with 30? incline Physical Therapy Visit Comments Patient Comments I'm better than yesterday, but it's still there M4 PT-IP Mobility and Gait Start: 09/19/21 08:58 Freq: NEEDED Status: Discharge Protocol: Document 09/19/21 14:30 DCW (Rec: 09/19/21 17:48 DCW [id number]) Gait Assessment Gait Gait Assistance Required: Standby Assistance Assistive Devices Assistive Device Front Wheeled Walker Gait Deviations General Gait Pattern Decreased Stride Length,Wide Based Gait Factors Limiting Gait Function Factors Limiting Gait Function Poor Balance Comments Gait Comments Pt ambulated to restroom to urinate and back to the bed SBA. Pt used FWW to return, felt more stable, still had slight self-corrected LOB when turning too quickly. M5 PT-IP Objective Assessments Start: 09/19/21 08:58 Freq: NEEDED Status: Discharge Protocol: Document 09/19/21 14:30 DCW (Rec: 09/19/21 17:48 DCW [id number]) Other Assessments Other Other Assessments Pt was sat up in bed, immediately showing increased right horizontal nystagmus, sustained for entirety of treatment session. Nystagmus persisted during smooth pursuit and saccadic testing. Left thrust test was very significantly positive, right was WNL. M6 PT-IP Treatment Start: 09/19/21 08:58 Freq: NEEDED Status: Discharge Protocol: Document 09/19/21 14:30 DCW (Rec: 09/19/21 17:48 [facility] [id number]) Physical Therapy Treatment Education Education Provided Safety Other Treatments Other Treatment Performed X1 exercises, education of VN, recommendation for out- patient vestibular rehabilitation M7 PT-IP Assessment and Plan Start: 09/19/21 08:58 Freq: NEEDED Status: Discharge Protocol: Document 09/19/21 14:30 DCW (Rec: 09/19/21 17:48 DCW [id number]) PT Summary Assessment and Plan Summary Assessment Summary Pt presents with signs and symptoms of left-sided vestibular neuritis. Sustained horizontal nystagmus beating away from affected side is an expected sign in the acute phase, and pt demonstrates a very positive left thrust test , indicating substantial left- sided unilateral hypofunction. DDx of labrynthitis, unlikely due to no complaints of hearing loss in affected ear. Pt unlikely to benefit from further in-patient rehab, and was instructed to contact PCP for an outpatient referral for vestibular rehabilitation. Pt is still in the acute phase, and will likely need to take it easy for the next 1-2 weeks , until symptoms subside a bit , and then will greatly benefit from vestibular rehabilitation. Discussed with pt and importance of rehab, overview of vestibular neuritis, and expected outcomes. Goals Bed Mobility Goal Independent Transfer Goal Independent Gait Goal Independent Gait Distance 200 Other Goals - up/down 12 steps with B rails SBA Days to Meet Goals 2 Discharge Recommendations PT Discharge Recommendations Home with Assistance, Outpatient PT Transportation Needs at Discharge Private Vehicle
== END 2021-09-19 17:31 | disposition home or self-care (01) ==
LOC: ED 17:18 → AC 17:52
PROVIDERS: Admitting Provider Internal Medicine; Emergency Provider Physician Assistant; PCP Internal Medicine; Referring Provider Physician Assistant; Visit Provider Internal Medicine
DX: R42 Dizziness and giddiness (principal); R11.2 Nausea with vomiting, unspecified; R00.1 Bradycardia, unspecified; Z85.841 Personal history of malignant neoplasm of brain; Z85.810 Personal history of malignant neoplasm of tongue; Z20.822 Contact with and (suspected) exposure to COVID-19; S00.91XA Abrasion of unspecified part of head, initial encounter; W22.09XA Striking against other stationary object, initial encounter
CPT/HCPCS: 36415; 70450; 70551; 71045; 80048; 80053; 81001; 82550; 82553; 83690; 83880; 84484; 85025; 87635; 93005; 94760; 95992; 96374; 96375; 97112; 97140; 97161; 99285; C9803; G0378; J0461; J3360

== ENCOUNTER → 2022-06-29 10:10 | Outpatient (CLI) | payer MEDICARE, OTHER, SELFPAY ==
[2021-09-18 17:52] VITALS: BMI 26.5
[2022-06-29 12:32] LABS: Alanine Aminotransferase 32 IU/L (<50); Albumin 4.4 g/dL (3.5-5.0); Albumin Globulin Ratio 1.4 (1.0-2.8); Alkaline Phosphatase 52 U/L (38-126); Aspartate Aminotransferase 32 IU/L (17-59); Bilirubin Total 0.7 mg/dL (0.2-1.3); Bilirubin Unconjugated 0.5 mg/dL (0.0-1.1); Cholesterol 220 mg/dL (140-199); Globulin 3.2 g/dL (1.7-4.1); HDL Cholesterol 34 mg/dL (40-60); HEMOLYSIS < 15 (0-50); LDL Cholesterol Calculated 147 mg/dL (<100); Total Protein 7.6 g/dL (6.3-8.2); Triglycerides 194 mg/dL (35-150)
[2022-06-29 12:59] LABS: TSH w/ Reflex to FT4 4.53 uIU/mL (0.47-4.68)
== END ==
PROVIDERS: PCP Student in an Organized Health Care Education/Training Program; Referring Provider Internal Medicine Cardiovascular Disease; Visit Provider Internal Medicine Cardiovascular Disease
DX: I10 Essential (primary) hypertension (principal); R00.1 Bradycardia, unspecified; Z13.220 Encounter for screening for lipoid disorders
CPT/HCPCS: 36415; 80061; 80076; 84443

== ENCOUNTER → 2022-07-03 07:34 | Outpatient (CLI) | payer MEDICARE, OTHER, SELFPAY ==
[2021-09-18 17:52] VITALS: BMI 26.5
--- NOTE | 2022-07-03 | DI.ECHO.S_ITS ---
[place] +---------+ [facility] +---------+ : : [address] : : : : [id number] : : : : Phone: [phone]+ Echocardiogram Report + + :Name: MEGAN RICH Study Date: 07/03/2022 Height: 69.5 in: :[facility] ReadingLocation: Weight: 185 lb : : Gender: Male BSA: 2.0 m2 : :: 1945 Age: 76 yrs BP: 134/82 mmHg: :Reason For Study: DYSPNEA : :Ordering Physician: PANCHO, : :ALLA Caraballo Performed By: Ana Landon : :Referring: ALLA MENESES : + + Interpretation Summary The ejection fraction is estimated to be 60-65%. Diastolic function could not be accurately assessed due to contradictory data. The left atrium is mildly dilated. The right ventricle is normal in size and function. There is trace aortic regurgitation. There is mild tricuspid regurgitation. The right ventricular systolic pressure is estimated to be at least 27 mmHg based on an estimated right atrial pressure of 3 mm Hg. Procedure: A two-dimensional transthoracic echocardiogram with color flow and Doppler was performed. The study quality was technically adequate. There is no prior echocardiogram noted for this patient. The patient was in sinus bradycardia with heart rates between 49-53 bpm during the exam. Left Ventricle: The left ventricle is normal in size and wall thickness. The ejection fraction is estimated to be 60-65%. Diastolic function could not be accurately assessed due to contradictory data. Right Ventricle: The right ventricle is normal in size and function. Atria: The left atrium is mildly dilated. Right atrial size is normal. There is no Doppler evidence for an interatrial shunt. Mitral Valve: The mitral valve is normal in structure and function. There is trace mitral regurgitation. Aortic Valve: The aortic valve is trileaflet. The aortic valve is mildly calcified. The aortic valve opens well. There is no aortic valve stenosis. There is trace aortic regurgitation. Tricuspid Valve: The tricuspid valve is normal in structure and function. There is mild tricuspid regurgitation. The right ventricular systolic pressure is estimated to be at least 27 mmHg based on an estimated right atrial pressure of 3 mm Hg. Pulmonic Valve: The pulmonic valve leaflets are thin and pliable; valve motion is normal. There is mild pulmonic regurgitation. Great Vessels: The aortic root is normal size. The dimensions of the ascending aorta are normal. The IVC is of normal diameter and collapses greater than 50% with a sniff. This suggests a low right atrial pressure of 3 mm Hg. Pericardium/ Pleura There is no pericardial effusion. There is no pleural effusion. MMode/2D Measurements & Calculations LVIDd: 5.0 cm LVOT diam: 2.3 cm LVIDs: 3.2 cm Ao root diam: 3.2 cm FS: 36.7 % asc Aorta Diam: 3.5 cm EPSS: 0.52 cm Ao Arch Diam (Prox Trans): 2.7 cm IVSd: 1.0 cm LVPWd: 0.79 cm LV tirado. diameter/BSA (cm/m^2): 2.5 LV sys. diameter/BSA (cm/m^2): 1.6 LA A2 area: 23.6 cm2 RA long axis: 5.8 cm LA A4 area: 21.7 cm2 RA area: 16.5 cm2 LA length (vol): 6.0 cm RA vol: 40.0 ml LA vol: 72.6 ml RA : 19.9 ml/m2 LA vol index: 36.2 ml/m2 IVC diam: 1.9 cm RVD1 (basal): 4.3 cm RVD2 (mid): 3.4 cm TAPSE: 2.3 cm Doppler Measurements & Calculations Ao V2 max: 155.2 cm/sec LVOT Max Saulo: 113.6 cm/sec Ao V2 mean: 109.4 cm/sec LV V1 max P.2 mmHg Ao max P.6 mmHg LV V1 VTI: 22.2 cm Ao mean P.3 mmHg WALDO(I,D): 2.6 cm2 Ao V2 VTI: 34.6 cm WALDO(V,D): 3.0 cm2 sev ratio: 0.64 WALDO indexed to BSA (cm^2/m^2): 1.3 MV E max saulo: 47.4 cm/sec TR max saulo: 245.2 cm/sec MV A max saulo: 72.1 cm/sec TR max P.1 mmHg MV E/A: 0.66 PA V2 max: 134.4 cm/sec Med Peak E' Saulo: 4.8 cm/sec PA V2 mean: 88.8 cm/sec E/E' med: 9.9 PA mean P.6 mmHg Lat Peak E' Saulo: 7.1 cm/sec PA pr(Accel): 34.5 mmHg E/E' lat: 6.7 E/e' average: 8.3 MV dec time: 0.40 sec SV(LVOT): 90.7 ml Reading Physician:04:26 PM
== END ==
PROVIDERS: PCP Student in an Organized Health Care Education/Training Program; Referring Provider Internal Medicine Cardiovascular Disease; Visit Provider Internal Medicine Cardiovascular Disease
DX: I07.1 Rheumatic tricuspid insufficiency (principal); I37.1 Nonrheumatic pulmonary valve insufficiency; R06.09 Other forms of dyspnea
CPT/HCPCS: 93306

== ENCOUNTER → 2022-07-24 09:38 | Outpatient (CLI) | payer MEDICARE, OTHER, SELFPAY ==
[2021-09-18 17:52] VITALS: BMI 26.5
--- NOTE | 2022-07-24 20:32 | DI.NM.S_ITS ---
DATE OF SERVICE: 07/24/2022 PROCEDURE PERFORMED: Exercise treadmill stress and rest myocardial perfusion imaging with gating to assess ejection fraction and regional wall motion. ORDERING PROVIDER: Dr. Alla Meneses. INDICATIONS: The patient is a 76-year-old male with exertional dyspnea and orthostatic hypotension. EXERCISE TREADMILL TESTING: The patient was able to exercise for 6 minutes, 1 second on a standard Kai protocol, suggesting fair exercise capacity with an AKASH of -3%. He had a normal heart rate and blood pressure response to exercise, achieving a maximum heart rate of 127 BPM (88% of his predicted maximum). He had no chest discomfort or other anginal symptoms. His resting ECG shows sinus rhythm with normal ST segments. While he develops subtle upsloping ST depression with stress, this resolves fairly promptly in recovery and thus is nonspecific. There are rare PACs but no concerning arrhythmias. At 4 minutes, 12 seconds of exercise at a heart rate of 114 BPM, 25.1 mCi of technetium-99m Myoview was injected and he was imaged 20 minutes later using a gated SPECT acquisition protocol. Earlier in the day while at rest, he had been injected with 10.8 mCi of technetium-99m Myoview while and was imaged 15 minutes later, again using a gated SPECT acquisition protocol. FINDINGS: 1. Raw data: There is fairly good myocardial tracer uptake. There is some slight motion on the resting images that required motion correction. The lung/heart ratio is normal at 0.29 with a normal TID ratio of 0.88. 2. Quantitated gated SPECT: Post-stress ejection fraction is 67% without any focal wall motion abnormality and specifically the distal anterior wall has normal contractility. The resting ejection fraction is also 67% with a normal resting end-diastolic volume of 88 mL. There is slightly increased tracer uptake in the right ventricular free wall, which can be a sign of a right ventricular overload condition, but is nonspecific. 3. Myocardial perfusion imaging: Post-stress supine images shows a normal myocardial perfusion pattern with the exception of a small, subtle defect in the distal anteroseptum that completely resolves on the prone imaging, suggesting it most likely reflects an attenuation artifact. The resting images show an identical perfusion pattern without any improvement in the distal anteroapical defect. IMPRESSION: 1. Probable normal myocardial perfusion study. 2. Small, subtle, fixed distal anteroseptal defect that likely reflects apical thinning or chest wall attenuation. There is no compelling evidence for any myocardial ischemia or previous myocardial infarction. 3. Normal left ventricular systolic function without any focal wall motion abnormality and normal left ventricular volumes. There is mildly increased tracer uptake in the right ventricular free wall, which can be a sign of a right ventricular overload condition but is nonspecific and clinical correlation is recommended. 4. Fair exercise capacity without angina or significant ECG evidence of ischemia although there is some subtle upsloping ST depression noted. He had rare PACs but no concerning arrhythmias. Davion Samuel - MELISSA/mike/adiel doc#: [id number]/job#: [id number] dd: 07/24/2022 16:42:00 dt: 07/24/2022 18:33:00 DICTATING /COPIES TO: Leonides Emery MD COPIES MNE: MERY;
== END ==
PROVIDERS: PCP Student in an Organized Health Care Education/Training Program; Referring Provider Internal Medicine Cardiovascular Disease; Visit Provider Internal Medicine Cardiovascular Disease
DX: R06.09 Other forms of dyspnea (principal); I95.1 Orthostatic hypotension
CPT/HCPCS: 78452; 93017; A9502

== ENCOUNTER → 2024-10-27 07:31 | Outpatient (CLI) | payer MEDICARE, OTHER, SELFPAY ==
[2021-09-18 17:52] VITALS: BMI 26.5
--- NOTE | 2024-10-27 07:34 | DI.US.S_ITS ---
PROCEDURE: US ABDOMEN LIMITED INDICATIONS: RUQ pain TECHNIQUE: Real-time scanning was performed of the abdominal and retroperitoneal organs, with image documentation. Forty images COMPARISON: None. FINDINGS: Liver: Mild diffuse increased echogenicity of the liver commonly hepatic steatosis or intrinsic hepatic disease. The liver is normal in size and contour measures approximately 14.9 centimeters in CC dimension of the right lobe. Main portal vein normal hepatopetal flow. Gallbladder: Suspected numerous echogenic shadowing gallstones with [id number] sign of the gallbladder. No ultrasound evidence of gallbladder wall thickening, pericholecystic fluid and sonographic Monson sign is noted as negative. Biliary ducts: Intrahepatic bile ducts are non-dilated. Extrahepatic bile duct caliber measures 4 mm. Normal is 6-7 mm or less in diameter, or 10 mm or less post-cholecystectomy. Pancreas: Pancreatic tail is not well visualized due to overlying bowel gas, per notes. Visualized portions of the pancreas are sonographically normal. Miscellaneous: No free abdominal fluid. IMPRESSION: Cholelithiasis without ultrasound evidence of cholecystitis. Common bile duct 4 millimeters within normal limits. If symptoms persist or worsen, or there is high clinical suspicion of abdominal abnormality, CT could be performed. Dictated by: Tommie Sood M.D. on 10/27/2024 at 8:40 Approved by: Tommie Sood M.D. on 10/27/2024 at 9:11
== END ==
LOC: US 07:33
PROVIDERS: PCP Family Medicine; Referring Provider Family Medicine; Visit Provider Family Medicine
DX: K80.20 Calculus of gallbladder without cholecystitis without obstruction (principal); R10.11 Right upper quadrant pain
CPT/HCPCS: 76705

== ENCOUNTER 2024-11-14 11:41 | Day surgery (SDC) | payer MEDICARE, OTHER, SELFPAY ==
[2021-09-18 17:52] VITALS: BMI 26.5
[2024-11-05 09:21] VITALS: BMI 27.2
[2024-11-14] VITALS (12 sets, daily range): BP systolic 169–233; BP diastolic 81–119; PULSE 44–88; RESP 16; TEMP 36.2; O2SAT 96–98; BMI 27.2
--- NOTE | 2024-11-14 | PATH_ITS ---
[facility] Accession Number: [id number] No. of containers..01 Tissue . 01 Material submitted: . gallbladder - GALLBLADDER AND CONTENTS . 01 Diagnosis: GALLBLADDER AND CONTENTS, CHOLECYSTECTOMY: Chronic cholecystitis and cholelithiasis. MRV 11/18/2024 1611 Local . 01 Electronically signed: . Saniya Souza MD, Pathologist NPI- [id number] . 01 Gross description: . The specimen is received in formalin, labeled with two patient identifiers and gallbladder and contents, and consists of an 8.5 x 3.5 x 2.4 cm, severely disrupted and previously opened gallbladder. The serosal surface has a moderate amount of fibrous adhesions, is markedly disrupted, and is partially surfaced by smooth, glistening, mancuso-brown serosa. The gallbladder wall is focally thickened and fibrotic and ranges from 0.2 cm up to 0.8 cm in thickness. The mucosa is diffusely hemorrhagic, coarsely granular, and free of polyps or lesions. Additionally received in the same container is a 9.5 x 6.0 x 2.8 cm aggregate of yellow to black, multifaceted gallstones. There is a 0.3 x 0.2 x 0.2 cm, probe-patent, stapled cystic duct, which is identified and inked blue. Financial Reporting Consultant sections are submitted in cassette A1 to include the cystic duct. ([id number]) /Aury 11/15/2024 1050 Local . 01 Pathologist provided ICD-10: K80.10 . 01 CPT . 144712 Specimen Comment: A courtesy copy of this report has been sent to [facility] Performed at: [address] [address], [place], [place] [id number] MD Hubert Menjivar MD Phone: [phone]
--- NOTE | 2024-11-14 12:08 | EKG_ITS ---
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
[2024-11-14] MEDS: ACETAMINOPHEN 325 MG TABLET 975 MG PO (12:13)
[2024-11-14] MEDS: FAMOTIDINE 20 MG/2 ML VIAL IV (12:13)
[2024-11-14] MEDS: LACTATED RINGERS 1,000 ML 42 ML IV ×2 (12:14→14:35)
--- NOTE | 2024-11-14 12:53 | PM.PREOP ---
Pre-operative Note COVID-19 COVID-19 status: Not tested Interval Note History & Physical reviewed/Exam performed by Physician: Yes Changes to H&P: No ASA Class (for procedural sedation): II
[2024-11-14] MEDS: CEFAZOLIN 2 GM/100 ML PREMIX 100 ML IV (13:10)
--- NOTE | 2024-11-14 13:33 | SUR.OPER ---
Supine on padded OR bed, head on pillow, safety belt at thigh, arms secured on padded arm board <90 degrees abduction. Legs uncrossed. Padded footboard in place. Tape over blanket to secure lower legs.
[2024-11-14] MEDS: BUPIVACAINE 0.5% (PF) 30 ML VIAL INJ (13:36)
--- NOTE | 2024-11-14 14:36 | PM.OP.1 ---
Operative Date/Time/Diagnoses Date of procedure: 11/14/24 Time of procedure: 13:15 Pre-op diagnosis: Gallstones Post-op diagnosis: same Procedure & Clinicians Procedure: Laparoscopic cholecystectomy Same procedure as scheduled: Yes Indications: Gallstone Surgeon: Leonides Montiel Loading Dock Helper: Willi Noland Click Yes if Unassisted: No Anesthesia Type: General Operative Notes Findings: Gallstones and chronic cholecystitis Closure Type: primary Specimen(s): other (Gallbladder and contents) Estimated Blood Loss (mL): 25 Blood products transfused: none Procedure in detail: After obtaining informed consent properly identifying the patient the patient was transported to the operating room and was placed on the table in the supine position the abdomen was prepped in the usual sterile manner. Time-out. Recall was observed. A 3 cm vertical midline incision was made with its caudad apex at the umbilical verge. Midline she was short cut down with a 3 in traction sutures of 0 Vicryl were placed on either side of midline. A peritoneotomy was made in direct vision and a 12 mm Isidro cannula was installed and secured by inflating the balloon at its tip if 5 mm 30 degree angled laparoscope was passed. The posterior surface of the right upper quadrant abdominal wall was visualized and 3 additional ports were placed 2 fingerbreadths below the right costal margin under direct laparoscopic vision. These were positioned 1 each in following positions: Subxiphoid, midclavicular line and anterior axillary line. Gallbladder was inspected. It was chronically inflamed and full of stones. An attempt at decompressing it with a needle aspirator was unsuccessful. The gallbladder fundus was retracted in cephalad and the infundibulum laterally. The triangle of Calot was sharply and bluntly dissected with L hook cautery and [place] dissector. This demonstrated the cystic duct and artery. The critical view was obtained. These structures were then triply clipped and transected between clips nearest the gallbladder. The remainder of the dissection consisted of sharp L hook cautery dissection in the plane between the gallbladder wall in the gallbladder fossa. This dissection was rendered difficult by the chronicity of the inflammation at the gallbladder wall. The series of gallstones were spilled into the subhepatic space and they were retrieved with Endo-Catch bags and stone graspers. The final attachments of the gallbladder were taken in an Endo-Catch bag was passed through the Isidro. The gallbladder was bagged under direct laparoscopic vision Isidro balloon was inflated and the specimen Endo-Catch and Isidro were withdrawn from the supraumbilical port site as a unit. The specimen was passed from the field and the 12 mm Isidro and 5 mm 30 degree angled scope were restored general positions. The subhepatic space was copiously irrigated. All irrigant was evacuated. The gallbladder fossa was coated with thrombogenic powder in the procedure was terminated. All laparoscopic equipment was withdrawn under direct laparoscopic vision. Pneumoperitoneum was evacuated and ports were withdrawn. The supraumbilical fascial defect was closed with a running 0 Prolene stitch. Three inverted deep dermal sutures were positioned to coagulate the margins of the supraumbilical incision which was then closed with skin noe. The upper abdominal skin wounds were closed with inverted deep dermal 3-0 Vicryl sutures and Dermabond. The patient tolerated the procedure well and was transported to the recovery room extubated and awake. Complications: none Post-operative Condition: stable Disposition: PACU Plan for aftercare: Discharge to home when awake alert. Follow up with me in 2 weeks.
[2024-11-14] MEDS: HYDROMORPHONE 1 MG INJ IV ×2 (15:35→15:45)
[2024-11-14] MEDS: KETOROLAC 30 MG/ML VIAL 15 MG IV (15:57)
[2024-11-14] MEDS: hydrALAZINE 20 MG/ML VIAL 5 MG IV ×2 (16:25→17:03)
[2024-11-14] MEDS: OXYCODONE IR 5 MG TABLET PO (16:38)
--- NOTE | 2024-11-14 16:54 | P.CALLCOV_ITS ---
Call Coverage Note Note Date of Patient Contact: 11/14/24 Time of Patient Contact: 16:58 Narrative of Care Provided: 79 M with PMH of HTN who had laparoscopic cholecystectomy earlier today. Pre-op SBP was in the 170s. Hospitalist asked to review for possible admission for hypertension. Patient was asymptomatic, without complains of headache, chest pain, or shortness of breath. He had no numbness, tingling, or vision changes. His BP is improved after he was found to be retaining some urine in PACU and IV hydralazine. He remains asymptomatic as of my evaluation. EKG shows NSR without evidence of acute ischemia. Patient reports he did not take his home antihyp ertensives today. Patient does not require observation for hypertensive urgency at this time. He can be discharged safely from PACU. Recommended he take his BP medications as per his usual routine.
== END 2024-11-14 17:00 | disposition home or self-care (01) ==
PROVIDERS: PCP Family Medicine; Referring Provider Surgery; Visit Provider Surgery
PROC: 0FT44ZZ Resection of Gallbladder, Percutaneous Endoscopic Approach (ICD-10-PCS; CPT 47562; principal; 2024-11-14 13:15)
DX: K80.10 Calculus of gallbladder with chronic cholecystitis without obstruction (principal); F17.210 Nicotine dependence, cigarettes, uncomplicated; R00.1 Bradycardia, unspecified
CPT/HCPCS: 47562; 44970; 93005; J0360; J0690; J1100; J1171; J1885; J2405; J2704; J3010; J3490